=== PATIENT | male | born 1960 | race Caucasian/White ===

== ENCOUNTER 2023-09-17 08:58 | Emergency (ER) | payer MEDICARE, SELFPAY ==
--- NOTE | ~2023-09-17 | XR_ITS ---
EXAMINATION: XR KNEE, LEFT CLINICAL INFORMATION: Left knee pain. COMPARISON: None available. TECHNIQUE: Four views of the left knee. FINDINGS: No acute fracture or dislocation. No significant joint space narrowing. Tiny tricompartmental marginal osteophytes. No osseous erosion. Trace joint effusion. Atherosclerotic calcifications. XR/XR knee LT 3V IMPRESSION: Mild tricompartmental osteoarthritis. Trace joint effusion.
[2023-09-17 09:24] VITALS: BP 134/83; PULSE 89; RESP 18; TEMP 36.4; O2SAT 97; BMI 30.6
--- NOTE | 2023-09-17 12:39 | ED_ITS ---
HPI - Extremity Problem General Chief complaint: Extremity Problem Stated complaint: l knee giving out and painfull Time Seen by Provider: 09/17/23 12:17 Source: patient Mode of arrival: ambulatory Limitations: no limitations History of Present Illness ED Provider: Rishi Jacob PA-C HPI Narrative: 62 y/o male presenting to the ER for evaluation of nontraumatic left knee pain that started yesterday. Patient reports pain inside of the knee with a is worth ambulation and when going down stairs. Patient reports his knee was giving out was walking down the stairs. He lives in a 3rd floor apartment. He does not have any pain with going up the stairs. Denies any injury or fall. He thinks his knee might be slightly swollen on the left side. He denies any redness or warmth. Now being with a cane due to the pain. He has not taken any medications yet for the pain. MD Complaint: joint swelling and joint pain Onset (ago): day(s) Pain Consistency: intermittent Location: left and knee Radiation: none Relieving factors: rest Exacerbating factors: weight bearing, walking and palpation Related Data Previous Rx's ?Medication ?Instructions ?Recorded naproxen 500 mg tablet 500 mg PO BID PRN pain #20 tabs 09/17/23 Allergies Allergy/AdvReac Type Severity Reaction Status Date / Time haloperidol [From Haldol] Allergy Rash Verified 09/17/23 09:26 Review of Systems Review of Systems: Yes all other systems are reviewed and are negative [facility] Social History Social History Advance Directives: No Advance Directives Information Provided: No Do you have a plan to hurt others: No Plan Physical Exam Vital Signs: Vital Signs: Last Vital Signs Temp 97.9 F 09/17/23 13:32 Pulse 80 09/17/23 13:32 Resp 16 09/17/23 13:32 BP 130/73 09/17/23 13:32 Pulse Ox 98 09/17/23 13:32 O2 Del Method Room Air 09/17/23 13:32 BMI result Body Mass Index 30.6 Appearance: Alert. Oriented X3. No acute distress. HEENT: normal inspection CVS: Normal heart rate and rhythm. Pulses normal. Respiratory: No respiratory distress. Skin: Skin warm and dry. Normal skin color. Normal skin turgor. No rashes. Extremities: Normal inspection of the left knee. Mild test along the medial joint line. Normal passive range of motion. No pain with varus or valgus stress. Negative anterior drawer test. Neuro: Oriented X 3. No motor deficit. No sensory deficit. Slightly antalgic gait Medical Decision Making Medical Decision Making [facility] Narrative: 62-year-old male with a history of diabetes and obesity presents to the ER for evaluation of nontraumatic leg pain that started yesterday. He reports it is worse with walking down stairs ambulation. Knee was giving out. Examination patient has some medial joint line tenderness no joint laxity. X-ray today shows some mild osteoarthritis and a trace this injury. Patient was placed in Danny wrap for compression support. We discussed supportive care including rest, ice, compression and elevation. Will start NSAID. Will refer to orthopedics for further evaluation if no improvement with supportive care. Patient agrees with plan. Will for discharge Differential Diagnosis Differential Diagnoses: The differential diagnosis associated with the p resentation includes osteoarthritis, inflammatory arthritis, gout, ligament injury, meniscus injury Independent Interpretation I performed an independent interpretation of an: Plain X-Ray Interpretation: no large joint effusion, no fracture or dislocation Radiology Impression Discussion of test interpretation with radiology: I have reviewed the radiologist's reading. Radiologist Impression: EXAMINATION: XR KNEE, LEFT CLINICAL INFORMATION: Left knee pain. COMPARISON: None available. TECHNIQUE: Four views of the left knee. FINDINGS: No acute fracture or dislocation. No significant joint space narrowing. Tiny tricompartmental marginal osteophytes. No osseous erosion. Trace joint effusion. Atherosclerotic calcifications. XR/XR knee LT 3V IMPRESSION: Mild tricompartmental osteoarthritis. Trace joint effusion. Independent Historian Clinical information obtained from an independent historian. History obtained from or confirmed by: Friend Prescription Management I considered prescription management with: Pain Medication Chronic Conditions Patient?s care impacted by: Diabetes and Other (obesity) Critical Care Time Critical Care Time Critical Care Time: No Discharge Plan Discharge Clinical Impression: Osteoarthritis Qualifiers: Osteoarthritis location: knee Osteoarthritis type: unspecified Laterality: left Qualified Code(s): M17.12 - Unilateral primary osteoarthritis, left knee Patient Disposition: Home, Self-Care Instructions: Osteoarthritis (DC), Knee Pain (ED) Additional Instructions: Your x-ray showed come mild osteoarthritis and a small amount of fluid in the knee. Recommend DANNY wrap for compression and support. Elevate and ice your knee when able. Take the prescribed anti-inflammatory medication as directed - take it with food Take Tylenol 1000 mg of tylenol every 8 hours as needed Follow up with your doctor Follow up with Orthopedics for further evaluation and treatment. If you develop new or worsening symptoms call 911 or come back to the ER for further evaluation. Prescriptions: New naproxen 500 mg tablet 500 mg PO BID PRN (Reason: pain) Qty: 20 0RF Referrals: [facility] [Provider Group] (EXAMINATION: XR KNEE, LEFT CLINICAL INFORMATION: Left knee pain. COMPARISON: None available. TECHNIQUE: Four views of the left knee. FINDINGS: No acute fracture or dislocation. No significant joint space narrowing. Tiny tricompartmental marginal osteophytes. No osseous erosion. Trace joint effusion. Atherosclerotic calcifications. XR/XR knee LT 3V IMPRESSION: Mild tricompartmental osteoarthritis. Trace joint effusion.) Lou Oliveira MD [Primary Care Provider] - Interventions: ED Discharge Assessment Last Done: 09/17/23 13:32 Discharge Date/Time: 09/17/23 13:32 Print Language: Sinhala
[2023-09-17 13:32] VITALS: BP 130/73; PULSE 80; RESP 16; TEMP 36.6; O2SAT 98
== END 2023-09-17 13:32 | disposition home or self-care (01) ==
PROVIDERS: Emergency Provider Emergency Medicine; PCP Internal Medicine
DX: M17.12 Unilateral primary osteoarthritis, left knee (principal); M25.562 Pain in left knee
CPT/HCPCS: 73562; 99282; 99283

== ENCOUNTER 2023-11-06 09:35 | Outpatient (AMB) | payer MEDICARE, SELFPAY ==
--- NOTE | 2023-11-06 09:44 | MHC.OFFVIS ---
Intake Visit Reasons: [employer]IVE [employer]-Left knee pain Intake Note: Hilario is a 62 year old male who presents to the office today for a new patient visit for left knee pain. Pt states the pain started about a month ago when he was walking up the stairs with groceries and twisted his leg. Pt states he was in pain for about 3 days but states that he has minimal discomfort at this time. He denies any locking or giving way. He states that most of his discomfort is along the medial aspect of his knee. Allergies haloperidol [From Haldol] Allergy (Verified 11/06/23 09:44) Rash Medication List - Last Reconciled 11/06/23 by Ned Daugherty MD aspirin 81 mg PO DAILY atorvastatin 40 mg PO DAILY empagliflozin (Jardiance) 10 mg PO DAILY insulin glargine (Lantus Solostar U-100 Insulin) units subcut lisinopril 20 mg PO DAILY metformin ER 1,000 mg PO BID semaglutide (Ozempic) mg subcut Physical Exam Const Other: Well-nourished well-developed very friendly male awake alert and oriented x3 in no acute distress Extrem Other: Bilateral lower extremity examination shows good capillary refill, no skin lesions noted, normal sensation light touch Left knee examination shows a minimal effusion, minimal crepitus with range of motion, tenderness along his medial collateral ligament, no instability Results Reviewed Results Reviewed: X-rays of the patient's left knee show mild diffuse joint space narrowing, no acute bony abnormalities Assessment & Plan Assessment & Plan (1) Left knee pain: Code(s): M25.562 - Pain in left knee Category: Medical Plan Mr. Loy Ferrell presents with intermittent left knee discomfort most likely due to sprain of his collateral ligament. I had a lengthy discussion with the patient regarding the treatment options. At this point the patient's symptoms are tolerable to him. He will continue with his activity modifications. He will follow up with me on an as-needed basis should his symptoms not plateau at an unacceptable level over the next few weeks. Feel free to call me at any time should questions regarding his orthopedic management arise. Thank you very much for asking me to see this very friendly gentleman. I spent 22 minutes in reviewing the patient's records and imaging studies, seeing the patient and documenting in the medical record. Medications: Discontinued naproxen Discontinued Reason: Patient no longer taking 500 mg PO BID PRN 20 tabs 0RF pain Coding Level of Care Code Est Pt Level 3 (27235) Diagnoses Left knee pain M25.562
== END 2023-11-06 10:16 | disposition home or self-care (01) ==
PROVIDERS: PCP Internal Medicine; Visit Provider Orthopaedic Surgery
DX: M25.562 Pain in left knee (principal)
CPT/HCPCS: 99213

== ENCOUNTER → 2023-11-06 09:35 | Outpatient (BNVA) | payer MEDICARE, SELFPAY | PROVIDERS: PCP Internal Medicine; Visit Provider Orthopaedic Surgery | DX: M25.562 Pain in left knee (principal) | CPT/HCPCS: 99212 ==

== ENCOUNTER 2024-07-24 10:06 | Inpatient (IN) | payer OTHER, SELFPAY ==
[2024-07-24] VITALS (12 sets, daily range): BP systolic 111–127; BP diastolic 58–89; PULSE 80–90; RESP 16–20; TEMP 35.8–36.9; O2SAT 95–99; BMI 31.0; BMI 31.4
--- NOTE | 2024-07-24 | ECG_ITS ---
Test Reason : stroke Blood Pressure : */* mmHG Vent. Rate : 86 BPM Atrial Rate : 86 BPM P-R Int : 150 ms QRS Dur : 78 ms QT Int : 376 ms P-R-T Axes : 52 16 31 degrees QTcB Int : 449 ms Sinus rhythm with Fusion complexes Otherwise normal ECG No previous ECGs available Referred By: Lou Oliveira Electronically Signed By: Rich Fritz
--- NOTE | ~2024-07-24 | CT_ITS ---
EXAMINATION: CTA NECK WITH CONTRAST (STROKE) CTA BRAIN WITH CONTRAST (STROKE) CLINICAL INFORMATION: Right-sided weakness. Concerning stroke. COMPARISON: Correlated to noncontrast CT of head dated July 24, 2024. TECHNIQUE: CTA of the head and neck was performed in the axial plane from the mediastinum to the skull vertex using 70 mL Omnipaque 350 intravenous contrast. Additional reformatted multiplanar images including maximum intensity projection MIP images are generated on the CT workstation. This CT examination was performed using dose optimization techniques as appropriate, variously including the following: *Automated exposure control *Adjustment of mA and/or kV according to patient size (this includes techniques or standardized protocols for targeted exams where dose is matched to indication/reason for exam; i.e. extremities or head) *Use of iterative reconstruction technique. DLP: 715 mGy centimeter. FINDINGS: The degree of stenosis determined by criteria similar to NASCET. Limited by patient's motion artifact, particularly at the carotid bulb/bifurcation. Chest CTA: Normal patency and diameter without focal stenosis or intimal flap, aortic arch. Calcified plaques in the inferior aspect of the aortic arch. Neck CTA: Right CCA: Normal patency. No focal stenosis. No intimal flap. Right ICA: Normal patency. Calcified plaque representing less than 50% stenosis. Left CCA: Normal patency. No focal stenosis. No intimal flap. Left ICA: Calcified plaque representing 70% stenosis. No intimal flap. V1/V2 segments: Normal patency. No focal stenosis. No intimal flap. Both demonstrated origin from the subclavian artery. Right vertebral artery is slightly dominant. Brain CTA: Anterior cerebral circulation: ICAs: Calcified plaques in the cavernous supraclinoid segments, bilaterally. Normal patency. No focal stenosis. No abrupt cut off. MCA's: Normal patency. No focal stenosis. No abrupt cut off. No vascular irregularity at the bifurcation/trifurcation. ACAs: Hypoplastic left A1 segment. Normal patency. No focal stenosis. No abrupt cut off. Anterior communicating artery is patent. Ophthalmic arteries are patent without gross irregularity at the origin. Left posterior communicating artery is robust. Posterior cerebral circulation: V3/V4 segments: Normal patency. No focal stenosis. No intimal flap. Posterior inferior cerebral arteries are patent without gross irregularity at the origin. Basilar artery: Normal patency. Small caliber. No intimal flap. Superior cerebellar arteries are patent. Anterior inferior cerebral arteries are patent. 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 No abrupt cut off. No focal stenosis. Ancillary findings: Multilevel cervical spondylosis C3 C6. Edentulous. CT/CT angio head neck STROKE IMPRESSION: No main cerebral artery occlusion or embolus. 70% stenosis left ICA secondary to calcified plaque. Less than 60% stenosis right ICA secondary to calcified plaque. 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 Atherosclerosis disease, cavernous supracavernous segments both ICA. This critical test result is communicated to: Dr. Angel Sahu in the emergency department via [employer] at 11:13 AM on July 24, 2024. Electronically signed by: Kwadwo Reynoso MD 07/24/2024 11:22 AM EDT
--- NOTE | ~2024-07-24 | CT_ITS ---
EXAMINATION: CT HEAD WITHOUT CONTRAST (STROKE PROTOCOL) CLINICAL INFORMATION: Right-sided weakness. Concerning stroke. COMPARISON: None available. TECHNIQUE: Contiguous axial imaging was performed from the skull base to vertex without intravenous administration of contrast. This CT examination was performed using dose optimization techniques as appropriate, variously including the following: *Automated exposure control *Adjustment of mA and/or kV according to patient size (this includes techniques or standardized protocols for targeted exams where dose is matched to indication/reason for exam; i.e. extremities or head) *Use of iterative reconstruction technique DLP: 776 mGy centimeter. FINDINGS: There is increased density at the the M2 or M3 segments of the left MCA, particularly at the left sylvian fissure region. No acute intracranial hemorrhage mass effect, midline shift, hydrocephalus or herniation. No gross effacement of the lainez-white matter differentiation. Prominence of the extra-axial CSF spaces cerebral sulci and ventricles. Posterior cranial fossa contents demonstrated no acute intracranial hemorrhage. Calcified plaques in the cavernous segments both ICA. Edentulous, maxilla. Bony calvarium is intact. No air-fluid levels in the paranasal sinuses. Tympanic cavities and mastoid cells are aerated. CT/CT head for STROKE IMPRESSION: Dense signed left MCA. Concerning acute nonhemorrhagic stroke left MCA territory .. This critical result was discussed with the emergency physician, Dr. Angel Sahu at 10:55 AM hours on July 24, 2024. It was ascertained that the content and urgency of the report was understood at the time of direct communication. Electronically signed by: Kwadwo Reynoso MD 07/24/2024 11:01 AM EDT
--- NOTE | ~2024-07-24 | XR_ITS ---
EXAMINATION: XR CHEST CLINICAL INFORMATION: Stroke Protocol COMPARISON: None available. TECHNIQUE: Frontal view of the chest was obtained. FINDINGS: The cardiac, hilar, and mediastinal contours are normal. The lungs are clear bilaterally. No pneumothorax or effusion. No focal osseous or soft tissue abnormality. XR/XR chest 1V IMPRESSION: No active pulmonary disease. Electronically signed by: Jacobo Morgan MD 07/24/2024 11:42 AM EDT
[2024-07-24 10:46] LABS: MANUAL DIFF FLAG NO
[2024-07-24 10:48] LABS: Prothrombin Time Whole Bld POC 11.7 sec (11.1-13.5)
[2024-07-24 10:51] LABS: Glucose, Whole Blood 394 mg/dL (60-115)
[2024-07-24] MEDS: iohexoL 350 MG/ML 100 ML INFUS..BTL IV (10:57)
[2024-07-24 11:00] LABS: Basophils Absolute Auto 0.1 X10*3/uL (0.0-0.2); Basophils Percent Auto 0.6 % (0-2); Eosinophils Absolute Auto 0.2 X10*3/uL (0.0-0.4); Eosinophils Percent Auto 2.8 % (0-4); Hematocrit 45.1 % (42.0-52.0); Hemoglobin 15.1 g/dl (14.0-18.0); Imm Gran Abs Auto 0.09 X10*3/uL (0.00-0.03); Imm Gran Pct Auto 1.1 % (0.0-0.4); Lymphocytes Absolute Auto 2.6 X10*3/uL (1.2-4.9); Lymphocytes Percent Auto 31.6 % (20-40); Mean Corpuscular HGB Conc 33.5 g/dl (31.0-36.0); Mean Corpuscular Hemoglobin 30.9 pg (27.0-33.0); Mean Corpuscular Volume 92.2 fL (80.0-98.0); Mean Platelet Volume 10.3 fL (9.4-12.4); Monocytes Absolute Auto 0.5 X10*3/uL (0.1-1.2); Monocytes Percent Auto 5.8 % (2-11); Neutrophils Absolute Auto 4.8 x10*3/uL (2.0-8.3); Neutrophils Percent Auto 58.1 % (45-73); Platelet Count 241 X10*3/uL (160-400); Red Blood Count 4.89 X10*6/uL (4.60-5.80); Red Cell Distribution Width 13.4 % (11.0-16.0); White Blood Count 8.2 X10*3/uL (4.8-10.8)
[2024-07-24] MEDS: Lactated Ringers 1,000 ML 999 ML IV (11:02)
[2024-07-24 11:05] LABS: Cholesterol 201 mg/dL (<200); HDL Cholesterol 26 mg/dL (>40)
[2024-07-24 11:10] LABS: Prothrombin Time 11.2 SEC (10.9-12.4); Troponin-I High Sensitivity < 2.7 ng/L (<3.5-35.0)
[2024-07-24 11:12] LABS: Partial Thromboplastin Time 34.7 SEC (26.0-36.8)
[2024-07-24 11:14] LABS: Stroke Lab Use COMPLETE
--- NOTE | 2024-07-24 11:16 | PC.NURSE ---
Patient alert and oriented. Patient himself offers no complaints. Daughter at bedside stating she last saw patient on sun and he seemed tired but otherwise fine. States when she came over this morning the right side of his face seemed droopy . Patient unable to smile, frown, or raise eyebrows on either side. Hand graps and leg lifts strong and equal. Denies sob, chest daryn or dizziness. Provider at bedside to assess patient. Patient sent to CT. Passed swallow eval and is able to follow commands.
[2024-07-24 11:20] LABS: Triglycerides 2050 mg/dL (<150)
--- NOTE | 2024-07-24 11:28 | ED.NEUROSD ---
HPI - Neuro Symptoms/Deficit General Chief Complaint: Stroke Stated Complaint: facial droop Time Seen by Provider: 07/24/24 10:31 Source: patient Mode of arrival: ambulatory Limitations: no limitations History of Present Illness HPI Narrative: This is a 63-year-old man with a past medical history of hypertension, hyperlipidemia, diabetes mellitus who presents for evaluation of right-sided facial droop. Last known well was 2 days prior to presentation. The patient having right-sided facial droop and slurred speech. He states no headache or neck pain. He states no trauma. He states no extremity weakness or paresthesias. He states no vision changes or hearing changes. He states no chest pain or dyspnea. He states that he did not take his aspirin this morning. He states no fevers. He states no previous history of CVA or IN. Related Data Home Medications ?Medication ?Instructions ?Recorded ?Confirmed aspirin 81 mg tablet,delayed 81 mg PO DAILY 11/06/23 11/06/23 release atorvastatin 40 mg tablet 40 mg PO DAILY 11/06/23 11/06/23 empagliflozin 10 mg tablet 10 mg PO DAILY 11/06/23 11/06/23 (Jardiance) insulin glargine 100 unit/mL (3 unit subcut 11/06/23 11/06/23 mL) subcutaneous pen (Lantus Solostar U-100 Insulin) lisinopril 20 mg tablet 20 mg PO DAILY 11/06/23 11/06/23 metformin 500 mg tablet,extended 1,000 mg PO BID 11/06/23 11/06/23 release 24 hr semaglutide 2 mg/dose (8 mg/3 mL) mg subcut 11/06/23 11/06/23 subcutaneous pen injector (Ozempic) Allergies Allergy/AdvReac Type Severity Reaction Status Date / Time haloperidol [From Haldol] Allergy Rash Verified 07/24/24 10:12 Review of Systems Review of Systems: ROS as per HPI [facility] Social History Social History Alcohol intake: former Smoked in Last 30 Days: Yes Use of substances other than those prescribed or required for medical reasons: No Advance Directives: Yes Advance Directives Information Provided: No Advance Directives on File: No Physical Exam Vital Signs: Vital Signs: Last Vital Signs Temp 98 F 07/24/24 11:39 Pulse 87 07/24/24 11:39 Resp 18 07/24/24 11:39 BP 127/80 07/24/24 12:05 Pulse Ox 97 07/24/24 12:05 O2 Del Method Room Air 07/24/24 12:05 BMI result Body Mass Index 31.0 Gen: NAD, AOx3 HEENT: NCAT, EOMI, normal conjunctiva CV: RRR Pulm: CTAB, no increased work of breathing GI: Soft, NTND, no rebound, guarding or rigidity Neuro: GCS 15, no sensory deficits, 5/5 BUE/BLE strength, no dysmetria, NIHSS 3 (1 point for mild-moderate dysrthria, slurring but can be understood, 2 points for partial paralysis (lower face)) Medications Administered Discontinued Medications Generic Name Dose Route Start Last Admin Trade Name Freq PRN Reason Stop Dose Admin Aspirin 324 mg 07/24/24 11:32 07/24/24 11:40 Aspirin 81 Mg Tab.Chew PO 07/24/24 11:33 324 mg ONCE ONE Administration Lactated Ringer's 1,000 mls @ 999 mls/hr 07/24/24 10:56 07/24/24 12:07 Lr IV 07/24/24 11:56 Infused .Q1H1M ONE Infusion Iohexol 100 ml 07/24/24 10:56 07/24/24 10:57 Iohexol 350 Mg/Ml 100 Ml Infus..Btl IV 07/24/24 10:57 70 ml ONCE ONE Administration Medical Decision Making Medical Decision Making MDM Narrative: Differential diagnosis includes, but is not limited toAcute ischemic stroke, acute intracranial hemorrhage, TIA. Not hypoglycemia. Patient is afebrile and hemodynamically stable on room air. Exam is benign and reassuring. NIHSS 3 (as above). Code stroke not activated given presence of symptoms >24 hours. TNK contraindicated given duration of symptoms. I reviewed patient's labs, EKG and CT imaging as below. Patient treated supportively with IV fluids and 5 units IV insulin regular. I discussed patient case and management with customs consultant Neurologist, Dr. Chamorro, who agrees with current management and admission for further evaluation. Patient provided aspirin here in the ED. I discussed case and management with hospitalist, Dr. Frias, who accepts patient for admission. Critical Care Time: A total of 60 minutes spent in direct patient care with coordinating critical resuscitation, procedures, reviewing records, discussing with consultants, reviewing labs, and/or managing patient. Admission/Observation Consideration of admission/observation: Escalation of care including admission/observation considered Consult Healthcare Provider Management of the patient was discussed with: Hospitalist and Weight And Balance Control Agent Lab Data MDM Lab Attestation statement: I reviewed the patient's lab results. Per my interpretation, labs are notable for hyperglycemia with glucose 396, anion gap 21, CO2 17. VBG is obtained. Patient provided 1L IV LR and 5U IV Insulin regular (POC glucose 306 prior to insulin). Anion gap may be multifactorial and secondary to uremia and ketosis. As mentioned, VBG is obtained for evaluation of concomitant acid-base disturbacne. Troponin undetectable. Venous blood gas with very mild acidosis with a pH 7.31, pCO2 46 and HC03 23. 07/24/24 10:41 07/24/24 10:40 Labs: Lab Results 07/24/24 07/24/24 07/24/24 Range/Units 10:40 10:41 10:44 WBC 8.2 (4.8-10.8) X10*3/uL RBC 4.89 (4.60-5.80) X10*6/uL Hgb 15.1 (14.0-18.0) g/dl Hct 45.1 (42.0-52.0) % MCV 92.2 (80.0-98.0) fL MCH 30.9 (27.0-33.0) pg MCHC 33.5 (31.0-36.0) g/dl RDW 13.4 (11.0-16.0) % Plt Count 241 (160-400) X10*3/uL MPV 10.3 (9.4-12.4) fL Immature Gran % (Auto) 1.1 H (0.0-0.4) % Neut % (Auto) 58.1 (45-73) % Lymph % (Auto) 31.6 (20-40) % [place] % (Auto) 5.8 (2-11) % Eos % (Auto) 2.8 (0-4) % Baso % (Auto) 0.6 (0-2) % Lymph # (Auto) 2.6 (1.2-4.9) X10*3/uL [place] # (Auto) 0.5 (0.1-1.2) X10*3/uL Eos # (Auto) 0.2 (0.0-0.4) X10*3/uL Baso # (Auto) 0.1 (0.0-0.2) X10*3/uL Abs Immat Gran (auto) 0.09 H (0.00-0.03) X10*3/uL Absolute Neuts (auto) 4.8 (2.0-8.3) x10*3/uL Absolute Nucleated RBC 0.000 (0.0-0.012) X10*3/uL Nucleated RBC % (auto) 0.0 (0.0-0.2) /100WBC Hold Purple Top SEE NOTE PT 11.2 (10.9-12.4) SEC Whole Blood PT 11.7 (11.1-13.5) sec INR 1.0 (0.9-1.1) Whole Blood INR 1.0 (0.9-1.1) APTT 34.7 (26.0-36.8) SEC VBG pH (7.32-7.43) VBG pCO2 mmHg VBG pO2 mmHg VBG HCO3 (22-26) mmol/L VBG O2 Saturation % VBG Base Excess mmol/L Sodium 138 (135-145) mmol/L Potassium 4.8 (3.3-5.1) mmol/L Chloride 105 (96-108) mmol/L Carbon Dioxide 17 L (22-29) mmol/L Anion Gap 21 H (12-20) BUN 22 H (9-16) mg/dL Creatinine 1.34 (0.5-1.4) mg/dL Estim Creat Clear Calc 64.2 Estimated GFR 54 POC Glucose 394 H* (60-115) mg/dL Random Glucose 396 H* (60-115) mg/dL Calcium 9.4 (8.4-10.2) mg/dL Troponin I High Sens < 2.7 (<3.5-35.0) ng/L Triglycerides 2050 H (<150) mg/dL Cholesterol 201 H (<200) mg/dL LDL Cholesterol, Calc TNP HDL Cholesterol 26 L (>40) mg/dL 07/24/24 07/24/24 Range/Units 12:05 12:09 WBC (4.8-10.8) X10*3/uL RBC (4.60-5.80) X10*6/uL Hgb (14.0-18.0) g/dl Hct (42.0-52.0) % MCV (80.0-98.0) fL MCH (27.0-33.0) pg MCHC (31.0-36.0) g/dl RDW (11.0-16.0) % Plt Count (160-400) X10*3/uL MPV (9.4-12.4) fL Immature Gran % (Auto) (0.0-0.4) % Neut % (Auto) (45-73) % Lymph % (Auto) (20-40) % [place] % (Auto) (2-11) % Eos % (Auto) (0-4) % Baso % (Auto) (0-2) % Lymph # (Auto) (1.2-4.9) X10*3/uL [place] # (Auto) (0.1-1.2) X10*3/uL Eos # (Auto) (0.0-0.4) X10*3/uL Baso # (Auto) (0.0-0.2) X10*3/uL Abs Immat Gran (auto) (0.00-0.03) X10*3/uL Absolute Neuts (auto) (2.0-8.3) x10*3/uL Absolute Nucleated RBC (0.0-0.012) X10*3/uL Nucleated RBC % (auto) (0.0-0.2) /100WBC Hold Purple Top PT (10.9-12.4) SEC Whole Blood PT (11.1-13.5) sec INR (0.9-1.1) Whole Blood INR (0.9-1.1) APTT (26.0-36.8) SEC VBG pH 7.31 L (7.32-7.43) VBG pCO2 46 mmHg VBG pO2 28 mmHg VBG HCO3 23 (22-26) mmol/L VBG O2 Saturation 39.0 % VBG Base Excess -2.7 mmol/L Sodium (135-145) mmol/L Potassium (3.3-5.1) mmol/L Chloride (96-108) mmol/L Carbon Dioxide (22-29) mmol/L Anion Gap (12-20) BUN (9-16) mg/dL Creatinine (0.5-1.4) mg/dL Estim Creat Clear Calc Estimated GFR POC Glucose 306 H (60-115) mg/dL Random Glucose (60-115) mg/dL Calcium (8.4-10.2) mg/dL Troponin I High Sens (<3.5-35.0) ng/L Triglycerides (<150) mg/dL Cholesterol (<200) mg/dL LDL Cholesterol, Calc HDL Cholesterol (>40) mg/dL Independent Interpretation I performed an independent interpretation of an: EKG, Plain X-Ray and CT Scan Interpretation: Per my interpretation EKG shows sinus rhythm at 86 beats per minute, ND 150, QRS 78, QTC 449, no STEMI; the chest x-ray shows no pleural effusion, focal consolidation or pneumothorax. CT of the head demonstrates no acute intracranial hemorrhage. Radiology Impression Discussion of test interpretation with radiology: I discussed test interpretation with the radiologist and I have reviewed the radiologist's reading. Radiologist Impression: I discussed with radiologist, Dr. Reynoso, who states concerning findings for left MCA stroke, no large vessel occlusion or intracerebral hemorrhage. XR/XR chest 1V IMPRESSION: No active pulmonary disease. Electronically signed by: Jacobo Morgan MD 07/24/2024 11:42 AM EDT RP Dictated By: Jacobo Morgan MD Signed By: <Electronically signed by Jacobo Morgan MD in [place]> 07/24/[address]/CT head for STROKE IMPRESSION: Dense signed left MCA. Concerning acute nonhemorrhagic stroke left MCA territory .. This critical result was discussed with the emergency physician, Dr. Angel Sahu at 10:55 AM hours on July 24, 2024. It was ascertained that the content and urgency of the report was understood at the time of direct communication. Electronically signed by: Kwadwo Reynoso MD 07/24/2024 11:01 AM EDT RP Dictated By: Kwadwo Thompson MD Signed By: <Electronically signed by Kwadwo Adams MD in [place]> 07/24/[address]/CT angio head neck STROKE IMPRESSION: No main cerebral artery occlusion or embolus. 70% stenosis left ICA secondary to calcified plaque. Less than 60% stenosis right ICA secondary to calcified plaque. origin left [employer]. Atherosclerosis disease, cavernous supracavernous segments both ICA. This critical test result is communicated to: Dr. Angel Sahu in the emergency department via [facility] at 11:13 AM on July 24, 2024. Electronically signed by: Kwadwo Reynoso MD 07/24/2024 11:22 AM EDT RP Dictated By: Kwadwo Thompson MD Signed By: <Electronically signed by Kwadwo Adams MD in [place]> 07/24/24 1122 Discharge Plan Discharge Clinical Impression: Dysarthria, Facial droop, Acute ischemic left MCA stroke, Hyperglycemia Patient Disposition: Admitted As Inpatient Prescriptions: No Action Jardiance 10 mg tablet 10 mg PO DAILY insulin glargine [Lantus Solostar U-100 Insulin] 100 unit/mL (3 mL) insulin pen subcut lisinopril 20 mg tablet 20 mg PO DAILY atorvastatin 40 mg tablet 40 mg PO DAILY metformin 500 mg tablet extended release 24 hr 1,000 mg PO BID aspirin 81 mg tablet,delayed release (DR/EC) 81 mg PO DAILY Ozempic 2 mg/dose (8 mg/3 mL) pen injector subcut Print Language: Kazakh
[2024-07-24] MEDS: Aspirin 81 MG TAB.CHEW 324 MG PO (11:40)
[2024-07-24 11:43] LABS: Anion Gap 21 (12-20); Blood Urea Nitrogen 22 mg/dL (9-16); Calcium 9.4 mg/dL (8.4-10.2); Carbon Dioxide 17 mmol/L (22-29); Chloride 105 mmol/L (96-108); Creatinine Clr Calc Pharmacy 64.2; Estimated Glomerular Filt Rate 54; Glucose Random 396 mg/dL (60-115); Potassium 4.8 mmol/L (3.3-5.1); Sodium 138 mmol/L (135-145)
--- NOTE | 2024-07-24 12:11 | PC.NURSE ---
blood sugar 306, provider notified, stating to give 5 units not 10 units
[2024-07-24 12:12] LABS: Venous Blood Gas Refer to POC result
[2024-07-24 12:13] LABS: VBG Base Excess -2.7 mmol/L; VBG HCO3 23 mmol/L (22-26); VBG pCO2 46 mmHg; VBG pH 7.31 (7.32-7.43); VBG pO2 28 mmHg
[2024-07-24 12:15] LABS: Glucose, Whole Blood 306 mg/dL (60-115)
[2024-07-24] MEDS: Insulin Regular, Human 100 UNIT/ML 10 ML VIAL IVPUSH (12:16)
--- NOTE | 2024-07-24 12:43 | P.HPHOSP_ITS ---
History of Present Illness Date of Service: 07/24/24 Attending physician on admission: Niurka Frias Chief Complaint: Right-sided facial droop Pt is a 63-year-old male with a PMH significant for?HLD, HTN, poorly controlled insulin-dependent type 2 diabetes who presents to the ED for evaluation right- sided facial droop and difficulty speaking noticed this morning. Pt lives alone but his regularly checked in on by his daughter. Last known well time Sunday afternoon. On Sunday pt went to adult daycare program and earlier this morning was seen by [facility] who administered his medications. Neither mentioned anything about change in appearance or activity. Daughter notes when she saw pt this morning noticed he had a right-sided facial droop and his speech sounded ?garbled?. The pt himself has not noticed any change to his appearance, and denies any acute medical complaints at this time. Reports feels at his baseline. No headache or acute vision changes. No hemiparesis, difficulty walking, or problems grasping or holding onto objects. Denies shortness or breath or difficulty breathing. No chest pain/pressure, palpitations. Denies fever, chills, nausea, vomiting, abdominal pain. Daughter notes that pt has significant psychiatric hx which prevents him from fully taking care of himself. Has a long hx of uncontrolled diabetes as he does not follow a strict diet. Has family hx of cardiac issues on father side, and mother of a stroke. ? In the ED pt's vitals stable and WNL. Labs were significant for creatinine 1.34, initial POC 394, triglycerides 2050, and HLD 26. No leukocytosis. Stable H&H. No significant electrolyte abnormalities. Troponin negative. CXR showed no acute pulmonary disease. CT?of head showed dense signed left MCA concerning for acute nonhemorrhagic stroke of left MCA territory. CTA of head and neck showed 70% stenosis of left ICA in less than 60% stenosis of right ICA secondary to calcified plaque. EKG demonstrated sinus rhythm with possible fusion complexes, but no evidence of significant ST elevations or depressions. Pt was treated with IVF, insulin 5 units IV, and aspirin. Pt will be admitted to the hospital for treatment and further evaluation of right-sided facial droop concerning for acute CVA of left MCA. Review of Systems 2 Review of Systems: Negative except for that which is stated in the HPI. [facility] Social History Alcohol intake: former Smoked in Last 30 Days: Yes Use of substances other than those prescribed or required for medical reasons: No Advance Directives: Yes Advance Directives Information Provided: No Advance Directives on File: No Meds Allergies Allergy/AdvReac Type Severity Reaction Status Date / Time haloperidol [From Haldol] Allergy Rash Verified 07/24/24 10:12 Active Medications: Current Medications Acetaminophen (Acetaminophen 325 Mg Tablet) 650 mg PO Q6H PRN PRN Reason: Pain, Mild 1-3,fever,headache Calcium Carbonate (Calcium Carbonate 750 Mg Tab.Chew) 750 mg PO Q4H PRN PRN Reason: Heartburn Enoxaparin Sodium (Enoxaparin Sodium 40 Mg/0.4 Ml Syringe) 40 mg SUBCUT Q24H [facility] Magnesium Hydroxide (Milk Of Magnesia 30 Ml Oral.Susp) 30 ml PO DAILY PRN PRN Reason: Constipation Melatonin (Melatonin 3 Mg Tablet) 6 mg PO BEDTIME PRN PRN Reason: Insomnia Ondansetron HCl (Ondansetron Hcl 4 Mg/2 Ml Vial) 4 mg IVPUSH Q8H PRN PRN Reason: Nausea and Vomiting Sodium Chloride (0.9 % Sodium Chloride Flush 3 Ml Syringe) 3 ml [facility] Home Medications ?Medication ?Instructions ?Recorded ?Confirmed ?Last Taken ?Type aspirin 81 mg tablet,delayed 81 mg PO DAILY 11/06/23 11/06/23 Unknown History release atorvastatin 40 mg tablet 40 mg PO DAILY 11/06/23 11/06/23 Unknown History lisinopril 20 mg tablet 20 mg PO DAILY 11/06/23 11/06/23 Unknown History metformin 500 mg tablet,extended 1,000 mg PO BID 11/06/23 11/06/23 Unknown History release 24 hr semaglutide 2 mg/dose (8 mg/3 mL) mg subcut 11/06/23 11/06/23 Unknown History subcutaneous pen injector (Ozempic) cholecalciferol (vitamin D3) 50 100 mcg PO DAILY 07/24/24 Unknown History mcg (2,000 unit) capsule (Vitamin D3) diphenhydramine HCl 50 mg capsule 50 mg PO BEDTIME PRN Sleep 07/24/24 Unknown History (Banophen) empagliflozin 25 mg tablet 25 mg PO DAILY 07/24/24 Unknown History (Jardiance) icosapent ethyl 1 gram capsule 2 g PO BID 07/24/24 Unknown History (Vascepa) insulin glargine 100 unit/mL (3 68 unit subcut DAILY 07/24/24 Unknown History mL) subcutaneous pen (Lantus Solostar U-100 Insulin) omeprazole 20 mg capsule,delayed 20 mg PO QAM 07/24/24 Unknown History release tamsulosin 0.4 mg capsule 0.4 mg PO DAILY 07/24/24 Unknown History tirzepatide 10 mg/0.5 mL 10 mg subcut QWEEK 07/24/24 Unknown History subcutaneous pen injector (Mounjaro) Physical Exam 2 Vital Signs and Narrative: Vital Signs: Last Vital Signs Temp 98 F 07/24/24 11:39 Pulse 87 07/24/24 11:39 Resp 18 07/24/24 11:39 BP 127/80 07/24/24 12:05 Pulse Ox 97 07/24/24 12:05 O2 Del Method Room Air 07/24/24 12:05 BMI result Body Mass Index 31.0 Constitutional: Alert, in no acute distress. Mental Status: Oriented to person, place and time. Eyes: Pupils are equal, round, and reactive to light. Ear, Nose, and Throat: Oropharynx clear, mucous membranes moist. Ears and nose without deformities. Trachea midline. Respiratory: Clear to auscultation bilaterally. No wheezing, rales, or rhonchi. Cardiovascular: S1, S2 regular. No murmurs, rubs, or gallops. Gastrointestinal: Abdomen soft, non-tender, non-distended. Normal bowel sounds. Neurologic: Right-sided facial droop and mild dysarthria. Otherwise no other focal deficits noted. Sensation to light touch intact of face and bilateral upper and lower extremities. Strength intact and symmetric of upper and lower extremities bilaterally. Negative pronator drift. Skin: Warm, dry. Extremities: No edema. Psychiatric: Normal mood and affect. Results Labs 07/24/24 10:41 07/24/24 10:40 Labs: Laboratory Results - last 24 hr 07/24/24 07/24/24 07/24/24 10:40 10:41 10:44 MCV 92.2 MCH 30.9 MCHC 33.5 RDW 13.4 Plt Count 241 MPV 10.3 Immature Gran % (Auto) 1.1 H Neut % (Auto) 58.1 Lymph % (Auto) 31.6 Barrow % (Auto) 5.8 Eos % (Auto) 2.8 Baso % (Auto) 0.6 Lymph # (Auto) 2.6 [place] # (Auto) 0.5 Eos # (Auto) 0.2 Baso # (Auto) 0.1 Abs Immat Gran (auto) 0.09 H Absolute Neuts (auto) 4.8 Absolute Nucleated RBC 0.000 Nucleated RBC % (auto) 0.0 Hold Purple Top SEE NOTE PT 11.2 Whole Blood PT 11.7 INR 1.0 Whole Blood INR 1.0 APTT 34.7 VBG pH VBG pCO2 VBG pO2 VBG HCO3 VBG O2 Saturation VBG Base Excess Anion Gap 21 H Estim Creat Clear Calc 64.2 Estimated GFR 54 POC Glucose 394 H* Random Glucose 396 H* Calcium 9.4 Triglycerides 2050 H Cholesterol 201 H LDL Cholesterol, Calc TNP HDL Cholesterol 26 L 07/24/24 07/24/24 12:05 12:09 MCV MCH MCHC RDW Plt Count MPV Immature Gran % (Auto) Neut % (Auto) Lymph % (Auto) Barrow % (Auto) Eos % (Auto) Baso % (Auto) Lymph # (Auto) [place] # (Auto) Eos # (Auto) Baso # (Auto) Abs Immat Gran (auto) Absolute Neuts (auto) Absolute Nucleated RBC Nucleated RBC % (auto) Hold Purple Top PT Whole Blood PT INR Whole Blood INR APTT VBG pH 7.31 L VBG pCO2 46 VBG pO2 28 VBG HCO3 23 VBG O2 Saturation 39.0 VBG Base Excess -2.7 Anion Gap Estim Creat Clear Calc Estimated GFR POC Glucose 306 H Random Glucose Calcium Triglycerides Cholesterol LDL Cholesterol, Calc HDL Cholesterol Imaging Radiologist's Impressions: Impressions Head CT 07/24/24 10:38 IMPRESSION: Dense signed left MCA. Concerning acute nonhemorrhagic stroke left MCA territory .. This critical result was discussed with the emergency physician, Dr. Angel Sahu at 10:55 AM hours on July 24, 2024. It was ascertained that the content and urgency of the report was understood at the time of direct communication. Electronically signed by: Kwadwo Reynoso MD 07/24/2024 11:01 AM EDT RP Head/Neck CTA 07/24/24 10:38 IMPRESSION: No main cerebral artery occlusion or embolus. 70% stenosis left ICA secondary to calcified plaque. Less than 60% stenosis right ICA secondary to calcified plaque. 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 Atherosclerosis disease, cavernous supracavernous segments both ICA. This critical test result is communicated to: Dr. Angel Sahu in the emergency department via [facility] connect at 11:13 AM on July 24, 2024. Electronically signed by: Kwadwo Reynoso MD 07/24/2024 11:22 AM EDT RP Chest X-Ray 07/24/24 10:39 IMPRESSION: No active pulmonary disease. Electronically signed by: Jacobo Morgan MD 07/24/2024 11:42 AM EDT RP Assessment and Plan (1) Acute ischemic left MCA stroke: Status: Acute Plan Pt is a 63-year-old male with a PMH significant for?HLD, HTN, poorly controlled insulin-dependent type 2 diabetes who presents to the ED for evaluation right- sided facial droop and difficulty speaking noticed this morning. Pt will be admitted to the hospital for treatment and further evaluation of right-sided facial droop concerning for acute CVA of left MCA. Acute CVA of left MCA Pt with right-sided facial droop, CTA of head showing dense signed left MCA Last known well time Sunday Pt with uncontrolled diabetes, hyperlipidemia, carotid stenosis and atherosclerotic disease Continue aspirin 81 mg daily Increase atorvastatin 40 mg daily to 80 mg daily Neurology consult Hold on MRI pending Neurology consult as CTA of head showing likely acute CVA PT/OT evaluation Monitor on telemetry Hypertriglyceridemia Triglycerides 2250 Atorvastatin 80 mg daily as above Will start on fenofibrate 54 mg daily Carotid stenosis CTA of head and neck showed 70% stenosis of left ICA and less than 60% stenosis of right ICA secondary to calcified plaques Treat hyperlipidemia as above Vascular surgery consult to establish care Insulin-dependent type 2 diabetes with hyperglycemia Patient's POC 394 at time of presentation Has been poorly controlled for many years Place on sliding scale insulin Hold metformin Continue Jardiance Will check A1c Diabetic diet Question of cognitive impairment Daughter notes pt with ?memory issues? for the past few years OT evaluation with MoCA HTN BP well-controlled Hold lisinopril for now, continue tomorrow GERD Continue PPI BPH Continue tamsulosin Full Code Attending:?Dr. Frias DVT Prophylaxis: Lovenox Pt will require a hospitalization of at least two nights for treatment of?acute CVA of left MCA requiring close cardiac and neurological monitoring, as well as specialist consultation with Neurology and OT/PT. Quality Stroke Does the patient have a stroke diagnosis?: Yes Reason for No Anti-thrombotic by Day Two: N/A - Med Ordered (Aspirin given. No tNK as pt's last known well time 2 days prior, well outside of therapeutic window.) VTE Prior VTE?: No VTE Risk Level:: Medical - moderate - high VTE Device Contraindication: Treatment Not Indicated VTE Drug Contraindication: N/A - Med Ordered
--- OUTSIDE RECORDS SUMMARY | 2024-07-24 13:43 | XMS_ITS | Data Portability ---
Author Organization [employer] [place] [facility] [employer] Address [address] [place] [id number] Care Team Providers Care Side Door Worker Name Role Phone [facility] Referring Provider Assessment Encounter Date Assessment Date Assessment LastModified by Organization Details LastModified Time 02/23/2023 02/23/2023 I provided real -time medical direction via phone for this encounter, and was available for additional phone based assistance as needed. I have reviewed and agree with the Assessment and Plan as documented by the Regional Extension Service Specialist. Patient given the opportunity to ask questions. as per above, patient was seen on February 20 and sent to the emergency room for paronychia AA. It was drained and he was placed on antibiotics. We were asked to come back to check on him and he is tolerating antibiotics well. The wound overall is improved. Please see pictures above. There is no evidence of spreading cellulitis. And again he is tolerating antibiotics well. Recommended that he call for a repeat visit and follow-up should conditions change from today. And red flags were discussed. We discussed the diagnostic uncertainty of home visits and the risk associated with this. In this case, the patient and I felt this to be an acceptable and reasonable amount of risk given the benefit of avoiding an ED visit. We discussed the need to seek care urgently/emerge ntly in the setting of any new or worsening serious symptoms, particularly fever chills Evidence of redness that is extending beyond what is currently present [email or web address] Not available 02/23/2023 16:57:30 Plan of Treatment Reminders Order Date Submit Date Provider Last Modified By Organization Details Last Modified Time Details Appointments None record ed. Lab None record ed. Referral None record ed. Procedures None record ed. Surgeries None record ed. Imaging None record ed. Medication Orders None record ed. Patient TargetsNo targets recorded. Patient InstructionsNo instructions recorded. Reason for Referral None Reported. Medical Equipment None Reported. Allergies Allergen ID Allergen Name Allergen Category Reaction Reaction Severity Criticality Documentation Date Start Date Code Code System Note Provider Name and Address Organization Details Recorded Time 8688 Haldol medicatio n Not available Not available Not available 02/12/2024 27109 9 RxNorm Not Available [facility] - production 4 03:46:03 Medications Name Sig Start Date Stop Date Status Note LastModified by Organization Details LastModified Time atorvastatin 40 mg tablet active Not Available Not Available Not Available atorvastatin 80 mg tablet TAKE 1 TABLET BY MOUTH ONCE DAILY active Not Available Not Available No t Available lisinopril 20 mg tablet TAKE 1 TABLET BY MOUTH ONCE DAILY active Not Available Not Available No t Available Alcohol Pads USE WITH insulin AND checking blood sugar EVERY DAY active Not Available Not Available No t Available aspirin 81 mg tablet,delay ed release TAKE 1 TABLET BY MOUTH ONCE DAILY active Not Available Not Available No t Available tamsulosin 0.4 mg capsule TAKE 1 CAPSULE BY MOUTH ONCE DAILY active Not Available Not Available No t Available omeprazole 20 mg capsule,chaz yed release TAKE 1 CAPSULE BY MOUTH ONCE DAILY 30 MINUTES BEFORE BREAKFAST active Not Available Not Available No t Available ibuprofen 600 mg tablet TAKE 1 TABLET BY MOUTH EVERY 8 HOURS NEEDED take with food active Not Available Not Available No t Available albuterol sulfate HFA 90 mcg/actuatio n aerosol inhaler INHALE 2 PUFFS BY MOUTH INTO THE lungs EVERY 4 HOURS NEEDED FOR COUGH, FOR SHORTNESS OF BREATH, OR FOR WHEEZING active Not Available Not Available No t Available metformin ER 500 mg tablet,exten ded release 24 hr TAKE 4 TABLETS BY MOUTH ONCE DAILY WITH A MEAL active Not Available Not Available No t Available Unistik 3 Comfort Device kit USE two (2) times a day DIRECTED AND NEEDED active Not Available Not Available No t Available FreeStyle Lite Strips USE TO TEST FINGER STICK BLOOD SUGAR two (2) times a day AND NEEDED active Not Available Not Available No t Available Lantus Solostar U-100 Insulin 100 unit/mL (3 mL) subcutaneous pen INJECT 52 UNITS UNDER THE SKIN ONCE DAILY active Not Available Not Available N ot Available omega 4-zca-eev-fi sh oil 300 mg-1,000 mg capsule TAKE TWO CAPSULES BY MOUTH ONCE DAILY active Not Available Not Available No t Available D3-2000 50 mcg (2,000 unit) capsule TAKE TWO CAPSULES BY MOUTH ONCE DAILY active Not Available Not Available No t Available Comfort EZ Pen [place] 31 gauge x 5/16 USE ONCE DAILY WITH insulin active Not Available Not Available No t Available Banophen 50 mg capsule TAKE 1 CAPSULE BY MOUTH AT BEDTIME NEEDED active Not Available Not Available No t Available Inject Ease Lancets 28 gauge USE TO TEST FINGER STICK BLOOD SUGAR ONCE DAILY active Not Available Not Available No t Available Jardiance 10 mg tablet TAKE 1 TABLET BY MOUTH ONCE DAILY active Not Available Not Available No t Available Ozempic 1 mg/dose (4 mg/3 mL) subcutaneous pen injector active Not Available Not Available Not Available Ozempic 2 mg/dose (8 mg/3 mL) subcutaneous pen injector INJECT 2 MG SUBCUTANEOU SLY EACH WEEK active Not Available Not Available No t Available Vitals Date Recorded Oxygen saturation Oxygen saturation in Arterial blood by Pulse oximetry Respiratory rate Body weight Body temperature Body height Heart rate Systolic blood pressure Diastolic blood pressure Provider Name and Address Organization Details Last Updated DateTime 3 99 % 99 % 14 /min 99830.6 g 98.1 [degF] 167.64 cm 94 /min 128 mm[Hg] 72 mm[Hg] Not Available [facility] 14:37:26 Date Recorded Heart rate Body weight Respiratory rate Body temperature Oxygen saturation Oxygen saturation in Arterial blood by Pulse oximetry Body height Systolic blood pressure Diastolic blood pressure Provider Name and Address Organization Details Last Updated DateTime 3 80 /min 50771.4 g 14 /min 98.4 [degF] 98 % 98 % 170.18 cm 166 mm[Hg] 82 mm[Hg] Not Available [facility] 16:49:05 Social History None recorded. Functional Status None recorded. Mental Status None recorded. Family History Nothing Reported. Medical History No medical history recorded. Past Encounters Encounter ID Performer Location Encounter Start Date Encounter Closed Date Diagnosis/Indication Diagnosis SNOMED-CT Code Diagnosis ICD10 Code Diagnosis Note [id number] Ghanshyam Glover MD [facility] - [facility] [address] [place] [address] 02/20/2023 14:37:17 02/20/2023 22:31:19 Paronychia of toe [id number] L03.039 This 62-year-ol d male noticed some swelling of this right first toe for the past few days. He has type 2 diabetes. I reviewed images of the toe and he clearly has a paronychia of the right first toe. I recommende d that he go to the ER for further evaluation and treatment. The patient agreed with this plan. [id number] Kayce Paniagua MD Main - [address] [address] 02/23/2023 16:48:57 02/26/2023 13:19:33 Paronychia of toe [id number] L03.039 Health Concerns Section Related Observation LastModified by Organization Detai ls LastModified Time None Recorded Concern Status LastModified by Organization Details LastModified Time None Recorded Advance Directives Directive None Recorded Payers Encounter Date Sequence Insurance Name Policy Number Policy North Covered Member ID North Member ID Guarantor Name 02/20/2023 1 [facility] - DOS ON OR AFTER 2022 - DUAL ELIGIBLE - [facility] OPTIONS AND ONE CARE (MEDICARE REPLACEMENT/ADV ANTAGE - HMO) Hilario Granado [id number] Mahendra Loy 02/23/2023 1 [facility] - DOS ON OR AFTER 2022 - DUAL ELIGIBLE - [facility] OPTIONS AND ONE CARE (MEDICARE REPLACEMENT/ADV ANTAGE - HMO) Hilario Granado [id number] Mahendra Loy Notes Date Note Type Note Provider Name and Address Organization Details Recorded Time 02/20/2023 text/html HPI: 62 y/o male patients daughter, Maday, called PCP office with reports of patient great toe on right foot purple, swollen and warm to touch. She denies any other swelling in BLE other than in patients toe. Patient denies injury to area. Daughter states that the color has become darker and grown in size since the weekend. Patient has poorly controlled DM. .................. .................. .................. .................. .................. .................. .................. ............... CRC Nursing Assessment: Comments: Reviewed. No further information needed to process visit. Diane Glover MD [address] [facility],[address], [place], [address], [facility] 02/20/2023 14:43:01 02/23/2023 text/html HPI: 62 yo male seen by Jeronimo 02/20 for few days of increasing redness and pain of great toe, felt to be paronychia. Given that he is diabetic, he was sent to the ED for further evaluation. X-ray of foot was negative for acute process, including osteomyelitis, but x-ray of tibia was obtained as lesion was noted in distal aspect. Impression: Fairly benign-appearing lucent and sclerotic lesion in the distal right tibia likely an enchondroma. Metastasis is less likely unless the patient has a history of a primary malignancy. WBC and CRP WNL, ESR slightly elevated at 32. He was prescribed Keflex 500mg BID x7 days and Bactrim DS 800-160mg BID x7 days. Per instructions: Please soak the toe 3-4 times a day in warm water, Take OTC Tylenol 650 mg every 6-8 hours as needed for pain, take with food, Take the antibiotics, Bactrim and Keflex twice daily as prescribed for 1 week, take the entire prescriptions, Please follow-up with your primary care provider in 2 days for reevaluation. .................. .................. .................. .................. .................. .................. .................. ............... CRC Nursing Assessment: Comments: Reviewed. No further information needed to process visit. Diane South RN .................. .................. .................. .................. .................. .................. .................. ............... Regional Extension Service Specialist Note From Crow Howell: Patient HARDY times three complains of left great toe infection. This mechanical design drafter saw the patient two days ago. Patient was transported to the hospital where he received a prescription for Bactrim and Keflex and is taking same. He said his toe was x-rayed, and he was discharged. Patient requests check up. Patient denies pain or discomfort to left toe. Patient pink, warm and dry secondary exam unremarkable left great toe almost exactly the same as 48 hours ago area above toe nail red and swollen. C encouraged pt to continue antibiotic? s and watch for fever or other symptoms. Red flags and pt education discussed. Regional Extension Service Specialist Allergies: Haldol .................. .................. .................. .................. .................. .................. .................. ............... Disposition: Abad Paniagua MD [address] [facility],[address], [place], [address], [employer] 02/23/2023 16:57:46
[2024-07-24 13:57] LABS: Estimated Average Glucose 203 mg/dL; Hemoglobin A1C 293.2242 umol/L; Hemoglobin A1c % 8.7 % (<6.0); Total Hemoglobin (HGBA1C) 4084.8675 umol/L
[2024-07-24] MEDS: Enoxaparin Sodium 40 MG/0.4 ML SYRINGE SUBCUT (14:16)
[2024-07-24] MEDS: Fenofibrate 54 MG TABLET PO (14:17)
[2024-07-24 14:25] LABS: Glucose, Whole Blood 217 mg/dL (60-115)
--- NOTE | 2024-07-24 14:59 | PC.NURSE ---
Alert and oriented, calm and cooperative. Vascular PA at bedside to speak with patient. Neuros iintact, denies pain or discomfort
--- NOTE | 2024-07-24 15:18 | P.CONGS_ITS ---
<Statement entered by Jaime Camejo MD - 07/24/24 17:05> I have seen and evaluated the patient and agree with history, findings, assessment and plan documented by Maude Ogden PA-c. Patient with carotid stenosis and stroke. Would continue medical management and add echo for evaluation. Patient can follow up with us as outpatient for further assessment and plan History of Present Illness Consult details Consult date: 07/24/24 <Maude Ogden PA-C - Last Filed: 07/24/24 15:29> Narrative: We were consulted for Hilario, for concerns of carotid artery stenosis, found on imaging. Hilario presented to the ER this morning with a right sided facial droop and slurred speech. Last known well time was 2d prior. He has a medical hx pertinent for HTN, HLD, and diabetes. He does take a daily ASA and is on Atorvastatin 40mg daily. He states he has been taking his medications regularly. He denies any headaches, weakness, or lightheadedness. He denies any diff swallowing. He states he is feeling better than when he first came in. <Maude Ogden PA-C - Last Filed: 07/24/24 15:29> Review of Systems 2 Constitutional: Constitutional: Reports as per HPI and Denies weakness < STUART Liriano Last Filed: 07/24/24 15:29> ENT: Reports Normal hearing present and Denies dizziness <STUART Liriano Last Filed: 07/24/24 15:29> Cardiovascular: Cardiovascular: Reports as per HPI, Denies chest pain, Denies chest pain at rest, Denies chest pain with activity, Denies dyspnea and Denies dyspnea on exertion <STUART Liriano Last Filed: 07/24/24 15:29> Respiratory: Respiratory: Reports as per HPI, Denies cough, Denies dyspnea and Denies dyspnea on exertion <STUART Liriano Last Filed: 07/24/24 15:29> Gastrointestinal: Gastrointestinal: Reports as per HPI, Denies abdominal pain, Denies nausea and Denies vomiting <STUART Liriano Last Filed: 07/24/24 15:29> Musculoskeletal: Musculoskeletal: Denies numbness <STUART Liriano Last Filed: 07/24/24 15:29> Integumentary/Breasts: Skin/Breast: Reports as per HPI, Denies erythema and Denies wounds <Maude Ogden PA-C Last Filed: 07/24/24 15:29> Neurologic: Reports Normal hearing present, Reports Abnormal speech present, Denies dizziness, Denies numbness, Denies Sensory deficit (Neuro) and Denies weakness <Maude Ogden PA-C Last Filed: 07/24/24 15:29> Psychiatric: Psychiatric: Reports no additional psychiatric complaints < STUART Liriano Last Filed: 07/24/24 15:29> Endocrine: Endocrine: Reports no additional endocrine complaints <STUART Liriano Last Filed: 07/24/24 15:29> [facility] Social History Social History: Social History Alcohol intake: former Smoked in Last 30 Days: Yes Use of substances other than those prescribed or required for medical reasons: No Advance Directives: Yes Advance Directives Information Provided: No Advance Directives on File: No <Maude Ogden PA-C Last Filed: 07/24/24 15:29> Meds Allergies/Adverse reactions: Allergies Allergy/AdvReac Type Severity Reaction Status Date / Time haloperidol [From Haldol] Allergy Rash Verified 07/24/24 10:12 <STUART Liriano Last Filed: 07/24/24 15:29> Active Medications: Current Medications Acetaminophen (Acetaminophen 325 Mg Tablet) 650 mg PO Q6H PRN PRN Reason: Pain, Mild 1-3,fever,headache Aspirin (Aspirin 81 Mg Tab.Chew) 81 mg PO DAILY JACKELIN Calcium Carbonate (Calcium Carbonate 750 Mg Tab.Chew) 750 mg PO Q4H PRN PRN Reason: Heartburn Dextrose (Dextrose 50 % 25 Gm/50 Ml Syringe) 25 gm IVPUSH Q15M PRN; Protocol PRN Reason: per Hypoglycemia Standing Ord. Enoxaparin Sodium (Enoxaparin Sodium 40 Mg/0.4 Ml Syringe) 40 mg SUBCUT Q24H [facility] Last Admin: 07/24/24 14:16 Dose: 40 mg Fenofibrate (Fenofibrate 54 Mg Tablet) 54 mg PO DAILY [facility] Last Admin: 07/24/24 14:17 Dose: 54 mg Glucose (Glucose Gel 15 Gm Gel..Gram.) 15 gm PO Q15M PRN; Protocol PRN Reason: per Hypoglycemia Standing Ord. Insulin Human Lispro (Insulin Lispro 100 Unit/Ml 3 Ml Vial) 0 unit SUBCUT QIDACHS [facility]; Protocol Magnesium Hydroxide (Milk Of Magnesia 30 Ml Oral.Susp) 30 ml PO DAILY PRN PRN Reason: Constipation Melatonin (Melatonin 3 Mg Tablet) 6 mg PO BEDTIME PRN PRN Reason: Insomnia Ondansetron HCl (Ondansetron Hcl 4 Mg/2 Ml Vial) 4 mg IVPUSH Q8H PRN PRN Reason: Nausea and Vomiting Sodium Chloride (0.9 % Sodium Chloride Flush 3 Ml Syringe) 3 ml IVFLUSH QSHIFT [facility] <Maude Ogden PA-C - Last Filed: 07/24/24 15:29> Home medications: Home Medications ?Medication ?Instructions ?Recorded ?Confirmed ?Last Taken ?Type aspirin 81 mg tablet,delayed 81 mg PO DAILY 11/06/23 07/24/24 07/24/24 History release atorvastatin 40 mg tablet 40 mg PO DAILY 11/06/23 07/24/24 07/24/24 History lisinopril 20 mg tablet 20 mg PO DAILY 11/06/23 07/24/24 07/24/24 History metformin 500 mg tablet,extended 1,000 mg PO BID 11/06/23 07/24/24 07/24/24 History release 24 hr aripiprazole 30 mg tablet 30 mg PO DAILY 07/24/24 07/24/24 07/24/24 History bupropion HCl 200 mg tablet,12 hr 200 mg PO DAILY 07/24/24 07/24/24 07/24/24 History sustained-release cholecalciferol (vitamin D3) 50 100 mcg PO DAILY 07/24/24 07/24/24 07/24/24 History mcg (2,000 unit) capsule (Vitamin D3) clonazepam 0.5 mg tablet 0.25 mg PO BID PRN Anxiety 07/24/24 07/24/24 Unknown History diphenhydramine HCl 50 mg capsule 50 mg PO BEDTIME PRN Sleep 07/24/24 07/24/24 Unknown History (Banophen) empagliflozin 25 mg tablet 25 mg PO DAILY 07/24/24 07/24/24 07/24/24 History (Jardiance) icosapent ethyl 1 gram capsule 2 g PO BID 07/24/24 07/24/24 07/24/24 History (Vascepa) insulin glargine 100 unit/mL (3 68 unit subcut DAILY 07/24/24 07/24/24 07/24/24 History mL) subcutaneous pen (Lantus Solostar U-100 Insulin) melatonin 3 mg tablet 6 mg PO BEDTIME PRN Insomnia 07/24/24 07/24/24 Unknown History omeprazole 20 mg capsule,delayed 20 mg PO DAILY@0630 07/24/24 07/24/24 07/24/24 History release tamsulosin 0.4 mg capsule 0.4 mg PO DAILY 07/24/24 07/24/24 07/24/24 History tirzepatide 10 mg/0.5 mL 10 mg subcut TH 07/24/24 07/24/24 07/17/24 History subcutaneous pen injector (Mounjaro) <Maude Ogden PA-C - Last Filed: 07/24/24 15:29> Physical Exam 2 Vital Signs: Vital Signs: Last Vital Signs Temp 98.5 F 07/24/24 14:00 Pulse 80 07/24/24 14:00 Resp 18 07/24/24 14:00 BP 120/72 07/24/24 14:00 Pulse Ox 96 07/24/24 14:00 O2 Del Method Room Air 07/24/24 14:00 BMI result Body Mass Index 31.0 <STUART Liriano Last Filed: 07/24/24 15:29> Const: General: comfortable and no acute distress <STUART Liriano Last Filed: 07/24/24 15:29> Orientation/consciousness: patient oriented x3 <STUART Liriano Last Filed: 07/24/24 15:29> HEENT: Ears: hearing grossly normal bilaterally <STUART Liriano Last Filed: 07/24/24 15:29> Resp: Effort & Inspection: normal respiratory effort and able to speak in complete sentences <STUART Liriano Last Filed: 07/24/24 15:29> Auscultation: clear to auscultation bilaterally <Maude OgdenBERNIE - Last Filed: 07/24/24 15:29> Cardio: Rate: regular rate <Maude OgdenBERNIEDago - Last Filed: 07/24/24 15:29> Rhythm: regular rhythm <Maude OgdenJOKallie - Last Filed: 07/24/24 15:29> Heart sounds: S1 normal heart sound present and S2 normal heart sound present <Maude OgdenJOKallie - Last Filed: 07/24/24 15:29> Bruits: no abdominal aortic bruits, no carotid bruits, no femoral bruits and no renal bruits <Maude OgdenBERNIE - Last Filed: 07/24/24 15:29> GI: Palpation (GI): No Abdominal aortic bruit present <Maude OgdenJOKallie - Last Filed: 07/24/24 15:29> Neuro: Other: Slight right sided facial droop noted. Slight decrease in winemaker strength and shoulder shrugging on the right. Slightly slurred speech noted. Oriented x3. <Maude OgdenBERNIE - Last Filed: 07/24/24 15:29> General: patient oriented x3 <Maude SouzaBERNIE ruiz Last Filed: 07/24/24 15:29> Cranial nerves: Yes Normal hearing present <Maude SouzaBERNIE ruiz - Last Filed: 07/24/24 15:29> Speech: Abnormal speech present <Maude Jeong BERNIE Ogden - Last Filed: 07/24/24 15:29> Sensory Exam: No Sensory deficit (Neuro) <Maude SouzaBERNIE ruiz - Last Filed: 07/24/24 15:29> Results Labs Result diagrams: 07/24/24 10:41 07/24/24 10:40 <Maude SouzaBERNIE ruiz - Last Filed: 07/24/24 15:29> Labs: Abnormal lab results 07/24/24 07/24/24 07/24/24 Range/Units 10:40 10:41 10:44 Immature Gran % (Auto) 1.1 H (0.0-0.4) % Abs Immat Gran (auto) 0.09 H (0.00-0.03) X10*3/uL VBG pH (7.32-7.43) Carbon Dioxide 17 L (22-29) mmol/L Anion Gap 21 H (12-20) BUN 22 H (9-16) mg/dL POC Glucose 394 H* (60-115) mg/dL Random Glucose 396 H* (60-115) mg/dL Hemoglobin A1c % 8.7 H (<6.0) % Triglycerides 2050 H (<150) mg/dL Cholesterol 201 H (<200) mg/dL HDL Cholesterol 26 L (>40) mg/dL 07/24/24 07/24/24 07/24/24 Range/Units 12:05 12:09 14:20 Immature Gran % (Auto) (0.0-0.4) % Abs Immat Gran (auto) (0.00-0.03) X10*3/uL VBG pH 7.31 L (7.32-7.43) Carbon Dioxide (22-29) mmol/L Anion Gap (12-20) BUN (9-16) mg/dL POC Glucose 306 H 217 H (60-115) mg/dL Random Glucose (60-115) mg/dL Hemoglobin A1c % (<6.0) % Triglycerides (<150) mg/dL Cholesterol (<200) mg/dL HDL Cholesterol (>40) mg/dL Short CBC 07/24/24 Range/Units 10:41 WBC 8.2 (4.8-10.8) X10*3/uL Hgb 15.1 (14.0-18.0) g/dl Hct 45.1 (42.0-52.0) % Plt Count 241 (160-400) X10*3/uL BMP 07/24/24 10:40 Sodium 138 Potassium 4.8 Chloride 105 Carbon Dioxide 17 L BUN 22 H Creatinine 1.34 Calcium 9.4 All other labs normal. <Maude Ogden PA-C - Last Filed: 07/24/24 15:29> Assessment and Plan (1) Acute ischemic left MCA stroke: Status: Acute <Maude Ogden PA-C - Last Filed: 07/24/24 15:29> We were consulted on Hilario for concerns of findings on CTA for bilateral carotid stenosis. He presented to the ER today with a right sided facial droop and slurred speech with a last known well time of 2d ago. He was found on CT angio of the head/neck of 70% stenosis of the LICA and <60% of the SAMI. He was found to have a nonhemorrhagic CVA of the left MCA. We recommend continuing with the daily ASA, increasing the Atorvastatin to high dose, and following up with us outpatient. We did place orders for an Echo. We will continue to monitor. Thank you for the consult. If there are any questions or concerns, please do not hesitate to reach out to us. <Maude Ogden PA-C - Last Filed: 07/24/24 15:29> Procedures Date of Service Date of Service: 07/24/24 <Maude Ogden PA-C - Last Filed: 07/24/24 15:29> 07/24/24 <Jaime Camejo MD - Last Filed: 07/24/24 17:04>
--- NOTE | 2024-07-24 15:30 | PHA.MEDREC ---
Addendum entered by Musa Webb RPh 07/24/24 18:11: Spoke to patient and verified that he takes 4 tablets of metformin ER 500 mg once a day. Med rec was reviewed by [facility]. Original Note: Pharmacy Consult ? Medication Reconciliation Pharmacy has completed the medication reconciliation. Spoke to patient and Daughter at bedside to confirm med list. Daughter states [facility] Patient confirmed Lantus Solostar 68 units daily, Mounjaro 10 mg every , last dose was 07/17/24. Util[facility] and list [facility] to confirm med list.
[2024-07-24] MEDS: 0.9 % Sodium Chloride Flush 3 ML SYRINGE IVFLUSH ×2 (17:23→20:50)
[2024-07-24 17:32] LABS: Glucose, Whole Blood 166 mg/dL (60-115)
[2024-07-24 18:09] LABS: Glucose, Whole Blood 198 mg/dL (60-115)
[2024-07-24] MEDS: Insulin Lispro 100 UNIT/ML 3 ML VIAL SUBCUT ×2 (18:14→20:47)
[2024-07-24 20:44] LABS: Glucose, Whole Blood 236 mg/dL (60-115)
[2024-07-25] VITALS (7 sets, daily range): BP systolic 102–142; BP diastolic 57–86; PULSE 83–93; RESP 16–18; TEMP 36.2–37.1; O2SAT 95–98
[2024-07-25] MEDS: Omeprazole 20 MG CAPSULE.DR PO (04:45)
--- NOTE | 2024-07-25 07:00 | CA_ITS ---
Transthoracic Echocardiogram Patient (Last, First, Middle): Hilario Juan, Gender: Male Date of : 1960 Age: 63 Procedure Date: 07/25/2024 Procedure Type: Transthoracic Echocardiogram Location: [facility] [place] Height: 175.26 cm Weight: 94.8 kg BSA: 2.10 m2 Heart Rate: 86 bpm BP: 120 / 72 mmHg Scout: SB Referring MD: Maude Ogden PA-C Symptoms: bilateral carotid stenosis, pre op, cva Study Quality: Fair/no IV access ECG Rhythm: Sinus Conclusions: - Normal left ventricular size, thickness, systolic function, and wall motion. The visually estimated ejection fraction is between 60-65%. - Normal right ventricular cavity size and systolic function. - Interatrial shunt cannot be excluded by color Doppler. Findings Left Ventricle Normal left ventricular size, thickness, systolic function, and wall motion. The visually estimated ejection fraction is between 60-65%. There is no evidence of regional wall motion abnormalities. Diastolic function is normal for age. There is moderate septal asymmetric hypertrophy. Right Ventricle Normal right ventricular cavity size and systolic function. Atria The left atrium is normal in size. Interatrial shunt cannot be excluded by color Doppler. The right atrium is normal in size. Aortic Valve Normal aortic valve structure and function. There is no aortic valve stenosis. There is no aortic valve regurgitation. Mitral Valve The mitral valve appears normal. There is no mitral valve regurgitation. There is no mitral valve stenosis. Pulmonic Valve The pulmonic valve is likely normal. Tricuspid Valve Normal tricuspid valve structure. There is trace tricuspid valve regurgitation. Tricuspid regurgitation envelope is inadequate for calculation of right ventricular systolic pressure. Normal right atrial pressure. Great Vessels All visible segments of the aorta are normal in size. The visualized portions of the pulmonary artery and branches are normal. Venous The inferior vena cava is normal in size and collapses greater than 50% with inspiration. Pericardium/Pleural There is no evidence of pericardial effusion. Prior Study Comparison No prior study available for comparison. Measurements 2D Linear Measurements IVSd: 0.88 0.6-0.9/0.6-1.0 cm LVIDd: 3.44 3.9-5.3/4.2-5.9 cm LVIDd Index: 1.64 2.4-3.2/2.2-3.1 cm/m2 LA Diam: 3.40 2.7-3.8/3.0-4.0 cm LAIDs Index: 1.62 1.5-2.3 cm/m2 LVOT Diam: 2.20 3.0+(-)1.3 cm 2D Systolic Function EF 4C: 60.80 >55% EF 2C: 54.90 >55% EF BiP: 57.80 >55% Mitral Valve MV Pk E: 0.75 MV PK A: 0.90 MV Decel Time: 165.00 E/A: 0.80 E'Lateral: 7.07 E'Medial: 8.16 E/E' Med: 9.20 E/E' Lat: 10.60 PHT: 48.00 MVA PHT: 4.58 Decel [place]: 4.53 Aortic Valve AoV Pk Daniel: 1.25 AoV Pk Grad: 6.00 LUH: 3.12 LVOT LVOT Pk Daniel: 1.09 LVOT Mn Daniel: 0.74 LVOT VTI: 0.19 LVOT Pk Grad: 5.00 LVOT Mn Grad: 2.00 LVOT Diam: 2.20 LVOT Area: 3.80 Diastolic Function MV Pk E: 0.75 MV Pk A: 0.90 E/A: 0.80 E'Medial: 8.16 E/E' Med: 9.20 E' Laterial: 7.07 E/E' Lat: 10.60 Right Ventricle TAPSE (mm): 18.40 TVS' Daniel: 13.70 Tricuspid Valve RA Press: 3.00 Great Vessels Aorta Sinus of Valsalva: 2.70 2.0-3.5 cm Ao Asc: 3.10 2.1-3.4 cm Pulmonary Valve PV Pk Daniel: 1.05 Peak PV Grad: 4.00 Updated in Other Vendor System with Status of Final Rich Fritz MD electronically signed on 07/26/2024 11:20:14 PM with status of Final
[2024-07-25 07:48] LABS: Glucose, Whole Blood 237 mg/dL (60-115)
[2024-07-25] MEDS: Fenofibrate 54 MG TABLET PO (09:30)
[2024-07-25] MEDS: Insulin Glargine,Hum.rec.anlog 100 UNIT/ML 10 ML VIAL 40 UNIT SUBCUT (09:30)
[2024-07-25] MEDS: Aspirin 81 MG TAB.CHEW PO (09:30)
[2024-07-25] MEDS: Tamsulosin HCL 0.4 MG CAPSULE PO (09:30)
[2024-07-25] MEDS: Atorvastatin Calcium 80 MG TABLET PO (09:30)
[2024-07-25] MEDS: Empagliflozin 25 MG TABLET PO (09:30)
[2024-07-25] MEDS: ARIPiprazole 30 MG TABLET PO (09:30)
[2024-07-25] MEDS: buPROPion HCl XL 150 MG TAB.ER.24H PO (09:30)
[2024-07-25] MEDS: 0.9 % Sodium Chloride Flush 3 ML SYRINGE IVFLUSH ×3 (09:31→20:31)
[2024-07-25] MEDS: Insulin Lispro 100 UNIT/ML 3 ML VIAL SUBCUT ×4 (09:31→20:35)
[2024-07-25] MEDS: Acetaminophen 325 MG TABLET 650 MG PO (09:52)
--- NOTE | 2024-07-25 11:46 | MHC.CM.PN ---
EMR REVIEWED, PT W/ACUTE CVA, PER HOSPITALIST NEURO/ECHO PENDING, PT DECLINES NEED FOR OT AND WILL LIKELY NOT NEED PT EITHER HOWEVER THEY WILL REVISIT. 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 PT'S GOAL FOR DC IS HOME TODAY VS TOMORROW 07/26. PCP ON FILE VERIFIED AND COPY OF HCP REQUESTED, JUAN RAMON REPORTS COPY IS AT PT'S PCP OFFICE THEY COMPLETED FORM THERE, PT VERIFIES JUAN RAMON [phone] IS PT'S HCP.
[2024-07-25] MEDS: Enoxaparin Sodium 40 MG/0.4 ML SYRINGE SUBCUT (12:16)
[2024-07-25 13:31] LABS: Glucose, Whole Blood 282 mg/dL (60-115)
--- NOTE | 2024-07-25 14:18 | MHC.STROKE ---
Met with patient and daughter in room 487. Stroke Education provided. Child Care Center Administrator offered, patient declined. Stroke pamphlet given/reviewed. Discussed medical history, medications, diet, activity, and social history. All questions answered. Will continue to assist as needed.
[2024-07-25 15:43] LABS: Glucose, Whole Blood 242 mg/dL (60-115)
--- NOTE | 2024-07-25 15:56 | P.CNNE_ITS ---
History of Present Illness Data of Consult Service Date: 07/25/24 Primary Care Provider: Lou Oliveira MD [facility] Reason for consult: Facial droop This is a 63-year-old male with a h/o ?HLD, HTN, poorly controlled insulin- dependent type 2 diabetes who presented to the ED for evaluation right-sided facial droop and difficulty speaking noticed this morning. Pt lives alone but is regularly checked in on by his daughter. On Sunday pt went to adult daycare program and earlier this morning was seen by VNA who administered his medications. Neither mentioned anything about change in appearance or activity. Daughter notes when she saw pt this morning noticed he had a right-sided facial droop and his speech sounded ?garbled?. The pt himself has not noticed any change to his appearance, and denies any acute medical complaints at this time. Reports feels at his baseline. No headache or acute vision changes. No hemiparesis, difficulty walking, or problems grasping or holding onto objects. Denies shortness or breath or difficulty breathing. No chest pain/pressure, palpitations. He has significant psychiatric hx which prevents him from fully taking care of himself. Has a long hx of uncontrolled diabetes as he does not follow a strict diet. Has family hx of cardiac issues on father side, and mother of a stroke. ? Labs: triglycerides 0, and HLD 26. No leukocytosis. CTA of head and neck showed 70% stenosis of left ICA in less than 60% stenosis of right ICA secondary to calcified plaque. CT brain reviewed and found to be negative. [facility] Past Medical History Medical History (Updated 07/25/24 @ 16:09 by Connor Johnson MD) Diabetes Hyperlipidemia Hypertension Social History Social History Household Members: None Housing: Apartment Do you presently have visiting nurse or other home services: Yes (RN 1x/wk for meds, [employer] dtr 3-4x/wk) Alcohol intake: former Patient Tobacco Use Status: Current everyday Tobacco user Tobacco use type: Cigarette Cigarette Packs Per Day: 1 Cigarettes Per Day: 20.0 Years Smoked: 50 Advance Directives Date on File: 07/24/24 service: No Meds Allergies Allergy/AdvReac Type Severity Reaction Status Date / Time haloperidol [From Haldol] Allergy Rash Verified 07/24/24 10:12 Active Medications: Current Medications Acetaminophen (Acetaminophen 325 Mg Tablet) 650 mg PO Q6H PRN PRN Reason: Pain, Mild 1-3,fever,headache Last Admin: 07/25/24 09:52 Dose: 650 mg Aripiprazole (Aripiprazole 30 Mg Tablet) 30 mg PO DAILY [facility] Last Admin: 07/25/24 09:30 Dose: 30 mg Aspirin (Aspirin 81 Mg Tab.Chew) 81 mg PO DAILY [facility] Last Admin: 07/25/24 09:30 Dose: 81 mg Atorvastatin Calcium (Atorvastatin Calcium 80 Mg Tablet) 80 mg PO DAILY [facility] Last Admin: 07/25/24 09:30 Dose: 80 mg Bupropion HCl (Bupropion Hcl Xl 150 Mg Tab.Er.24h) 150 mg PO DAILY [facility] Last Admin: 07/25/24 09:30 Dose: 150 mg Calcium Carbonate (Calcium Carbonate 750 Mg Tab.Chew) 750 mg PO Q4H PRN PRN Reason: Heartburn Clonazepam (Clonazepam 0.5 Mg Tablet) 0.25 mg PO BID PRN PRN Reason: Anxiety Dextrose (Dextrose 50 % 25 Gm/50 Ml Syringe) 25 gm IVPUSH Q15M PRN; Protocol PRN Reason: per Hypoglycemia Standing Ord. Diphenhydramine HCl (Diphenhydramine Hcl 25 Mg Capsule) 50 mg PO BEDTIME PRN PRN Reason: Sleep Empagliflozin (Empagliflozin 25 Mg Tablet) 25 mg PO DAILY [facility] Last Admin: 07/25/24 09:30 Dose: 25 mg Enoxaparin Sodium (Enoxaparin Sodium 40 Mg/0.4 Ml Syringe) 40 mg SUBCUT Q24H [facility] Last Admin: 07/25/24 12:16 Dose: 40 mg Fenofibrate (Fenofibrate 54 Mg Tablet) 54 mg PO DAILY [facility] Last Admin: 07/25/24 09:30 Dose: 54 mg Glucose (Glucose Gel 15 Gm Gel..Gram.) 15 gm PO Q15M PRN; Protocol PRN Reason: per Hypoglycemia Standing Ord. Insulin Glargine (Insulin Glargine,Hum.Rec.Anlog 100 Unit/Ml 10 Ml Vial) 40 unit SUBCUT DAILY [facility] Last Admin: 07/25/24 09:30 Dose: 40 unit Insulin Human Lispro (Insulin Lispro 100 Unit/Ml 3 Ml Vial) 0 unit SUBCUT QIDACHS [facility]; Protocol Last Admin: 07/25/24 12:16 Dose: 4 unit Magnesium Hydroxide (Milk Of Magnesia 30 Ml Oral.Susp) 30 ml PO DAILY PRN PRN Reason: Constipation Melatonin (Melatonin 3 Mg Tablet) 6 mg PO BEDTIME PRN PRN Reason: Insomnia Omeprazole (Omeprazole 20 Mg Capsule.Dr) 20 mg PO DAILY@0630 [facility] Last Admin: 07/25/24 04:45 Dose: 20 mg Ondansetron HCl (Ondansetron Hcl 4 Mg/2 Ml Vial) 4 mg IVPUSH Q8H PRN PRN Reason: Nausea and Vomiting Sodium Chloride (0.9 % Sodium Chloride Flush 3 Ml Syringe) 3 ml IVFLUSH QSHIFT [facility] Last Admin: 07/25/24 09:31 Dose: 3 ml Tamsulosin HCl (Tamsulosin Hcl 0.4 Mg Capsule) 0.4 mg PO DAILY [facility] Last Admin: 07/25/24 09:30 Dose: 0.4 mg Home Medications ?Medication ?Instructions ?Recorded ?Confirmed ?Last Taken ?Type aspirin 81 mg tablet,delayed 81 mg PO DAILY 11/06/23 07/24/24 07/24/24 History release atorvastatin 40 mg tablet 40 mg PO DAILY 11/06/23 07/24/24 07/24/24 History lisinopril 20 mg tablet 20 mg PO DAILY 11/06/23 07/24/24 07/24/24 History metformin 500 mg tablet,extended 2,000 mg PO DAILY 11/06/23 07/24/24 07/24/24 History release 24 hr aripiprazole 30 mg tablet 30 mg PO DAILY 07/24/24 07/24/24 07/24/24 History bupropion HCl 200 mg tablet,12 hr 200 mg PO DAILY 07/24/24 07/24/24 07/24/24 History sustained-release cholecalciferol (vitamin D3) 50 100 mcg PO DAILY 07/24/24 07/24/24 07/24/24 History mcg (2,000 unit) capsule (Vitamin D3) clonazepam 0.5 mg tablet 0.25 mg PO BID PRN Anxiety 07/24/24 07/24/24 Unknown History diphenhydramine HCl 50 mg capsule 50 mg PO BEDTIME PRN Sleep 07/24/24 07/24/24 Unknown History (Banophen) empagliflozin 25 mg tablet 25 mg PO DAILY 07/24/24 07/24/24 07/24/24 History (Jardiance) icosapent ethyl 1 gram capsule 2 g PO BID 07/24/24 07/24/24 07/24/24 History (Vascepa) insulin glargine 100 unit/mL (3 68 unit subcut DAILY 07/24/24 07/24/24 07/24/24 History mL) subcutaneous pen (Lantus Solostar U-100 Insulin) melatonin 3 mg tablet 6 mg PO BEDTIME PRN Insomnia 07/24/24 07/24/24 Unknown History omeprazole 20 mg capsule,delayed 20 mg PO DAILY@0630 07/24/24 07/24/24 07/24/24 History release tamsulosin 0.4 mg capsule 0.4 mg PO DAILY 07/24/24 07/24/24 07/24/24 History tirzepatide 10 mg/0.5 mL 10 mg subcut TH 07/24/24 07/24/24 07/17/24 History subcutaneous pen injector (Mounjaro) Physical Exam 2 Vital Signs: Vital Signs: Last Vital Signs Temp 98.0 F 07/25/24 15:51 Pulse 83 07/25/24 15:51 Resp 18 07/25/24 15:51 BP 121/66 07/25/24 15:51 Pulse Ox 95 07/25/24 15:51 O2 Del Method Room Air 07/25/24 15:51 BMI result Body Mass Index 31.4 Neuro: Other: Right peripheral facial palsy, otherwise normal neuro exam. 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 No evidence of stroke on clinical exam , CTA or CT. He can be discharged. Expect recovery in 8 weeks. No need for steroids because of his out of control DM. Treat diabetes and hyperlipidemia Procedures Date of Service Date of Service: 07/25/24
--- NOTE | 2024-07-25 15:56 | HO.PM.IMPN ---
Subjective Subjective Date of Service: 07/25/24 Interval History: Being followed for acute CVA with right facial droop/slurred speech Patient awake alert offers no acute complaints No acute events overnight Review of Systems All other system reviewed and are negative Physical Exam Vital Signs: Vital Signs: Last Vital Signs Temp 98.0 F 07/25/24 15:51 Pulse 83 07/25/24 15:51 Resp 18 07/25/24 15:51 BP 121/66 07/25/24 15:51 Pulse Ox 95 07/25/24 15:51 O2 Del Method Room Air 07/25/24 15:51 BMI result Body Mass Index 31.4 Const: Other: General resting comfortably in no acute distress. Neck no JVD. CVS regular rate rhythm, Respiratory lungs clear to auscultation, no respiratory distress, no wheeze, no rhonchi. Gastrointestinal abdomen soft, non tender, bowel sounds audible Extremities no edema. Neuro right-sided facial droop, speech mild dysarthria, normal strength upper and lower extremity, no pronator drift, alert oriented x3 Skin no rash, no rash Psych appropriate affect Objective Data Active Medications Acetaminophen (Acetaminophen 325 Mg Tablet) 650 mg PO Q6H PRN PRN Reason: Pain, Mild 1-3,fever,headache Last Admin: 07/25/24 09:52 Dose: 650 mg Documented By: DOMINGO Aripiprazole (Aripiprazole 30 Mg Tablet) 30 mg PO DAILY [facility] Last Admin: 07/25/24 09:30 Dose: 30 mg Documented By: DOMINGO Aspirin (Aspirin 81 Mg Tab.Chew) 81 mg PO DAILY [facility] Last Admin: 07/25/24 09:30 Dose: 81 mg Documented By: DOMINGO Atorvastatin Calcium (Atorvastatin Calcium 80 Mg Tablet) 80 mg PO DAILY [facility] Last Admin: 07/25/24 09:30 Dose: 80 mg Documented By: DOMINGO Bupropion HCl (Bupropion Hcl Xl 150 Mg Tab.Er.24h) 150 mg PO DAILY [facility] Last Admin: 07/25/24 09:30 Dose: 150 mg Documented By: DOMINGO Calcium Carbonate (Calcium Carbonate 750 Mg Tab.Chew) 750 mg PO Q4H PRN PRN Reason: Heartburn Clonazepam (Clonazepam 0.5 Mg Tablet) 0.25 mg PO BID PRN PRN Reason: Anxiety Dextrose (Dextrose 50 % 25 Gm/50 Ml Syringe) 25 gm IVPUSH Q15M PRN; Protocol PRN Reason: per Hypoglycemia Standing Ord. Diphenhydramine HCl (Diphenhydramine Hcl 25 Mg Capsule) 50 mg PO BEDTIME PRN PRN Reason: Sleep Empagliflozin (Empagliflozin 25 Mg Tablet) 25 mg PO DAILY [facility] Last Admin: 07/25/24 09:30 Dose: 25 mg Documented By: DOMINGO Enoxaparin Sodium (Enoxaparin Sodium 40 Mg/0.4 Ml Syringe) 40 mg SUBCUT Q24H [facility] Last Admin: 07/25/24 12:16 Dose: 40 mg Documented By: DOMINGO Fenofibrate (Fenofibrate 54 Mg Tablet) 54 mg PO DAILY [facility] Last Admin: 07/25/24 09:30 Dose: 54 mg Documented By: DOMINGO Glucose (Glucose Gel 15 Gm Gel..Gram.) 15 gm PO Q15M PRN; Protocol PRN Reason: per Hypoglycemia Standing Ord. Insulin Glargine (Insulin Glargine,Hum.Rec.Anlog 100 Unit/Ml 10 Ml Vial) 40 unit SUBCUT DAILY [facility] Last Admin: 07/25/24 09:30 Dose: 40 unit Documented By: DOMINGO Insulin Human Lispro (Insulin Lispro 100 Unit/Ml 3 Ml Vial) 0 unit SUBCUT QIDACHS [facility]; Protocol Last Admin: 07/25/24 12:16 Dose: 4 unit Documented By: DOMINGO Magnesium Hydroxide (Milk Of Magnesia 30 Ml Oral.Susp) 30 ml PO DAILY PRN PRN Reason: Constipation Melatonin (Melatonin 3 Mg Tablet) 6 mg PO BEDTIME PRN PRN Reason: Insomnia Omeprazole (Omeprazole 20 Mg Capsule.Dr) 20 mg PO DAILY@0630 [facility] Last Admin: 07/25/24 04:45 Dose: 20 mg Documented By: ISATU Ondansetron HCl (Ondansetron Hcl 4 Mg/2 Ml Vial) 4 mg IVPUSH Q8H PRN PRN Reason: Nausea and Vomiting Sodium Chloride (0.9 % Sodium Chloride Flush 3 Ml Syringe) 3 ml IVFLUSH QSHIFT [facility] Last Admin: 07/25/24 09:31 Dose: 3 ml Documented By: DOMINGO Tamsulosin HCl (Tamsulosin Hcl 0.4 Mg Capsule) 0.4 mg PO DAILY [facility] Last Admin: 07/25/24 09:30 Dose: 0.4 mg Documented By: DOMINGO Labs 07/24/24 10:41 07/24/24 10:40 Labs: Laboratory Results - last 24 hr 07/24/24 07/24/24 07/24/24 17:29 18:05 20:39 POC Glucose 166 H 198 H 236 H 07/25/24 07/25/24 07/25/24 07:45 11:58 15:33 POC Glucose 237 H 282 H 242 H Assessment and Plan (1) Hyperglycemia: Status: Acute (2) Acute ischemic left MCA stroke: Status: Acute (3) Facial droop: Status: Acute Plan 63-year-old male with a PMH significant for?HLD, HTN, poorly controlled insulin-dependent type 2 diabetes who presents to the ED for evaluation right-sided facial droop and difficulty speaking noticed this morning. Pt will be admitted to the hospital for treatment and further evaluation of right-sided facial droop concerning for acute CVA of left MCA. Acute CVA of left MCA right-sided facial droop, CTA of head showing dense signed left MCA Last known well time Sunday uncontrolled diabetes, hyperlipidemia, carotid stenosis and atherosclerotic disease Continue aspirin 81 mg daily Increase atorvastatin 40 mg daily to 80 mg daily Neurology consult Hold on MRI pending Neurology consult as CTA of head showing likely acute CVA PT recommend home service with PT Hypertriglyceridemia Triglycerides 2250 Atorvastatin 80 mg daily as above Started fenofibrate 54 mg daily Carotid stenosis CTA of head and neck showed 70% stenosis of left ICA and less than 60% stenosis of right ICA secondary to calcified plaques Treat hyperlipidemia as above Seen by vascular surgery they recommended echocardiogram report pending and outpatient follow-up Insulin-dependent type 2 diabetes with hyperglycemia POC 394 at time of presentation Continue sliding scale insulin,Hold metformin Continue Jardiance,hb A1c 8.7 Diabetic diet Question of cognitive impairment Daughter notes pt with ?memory issues? for the past few years OT evaluation with MoCA HTN BP well-controlled, Hold lisinopril and follow BP GERD Continue PPI BPH Continue tamsulosin Full Code DVT Prophylaxis: Lovenox Pt will require continued inpatient hospitalization for treatment of?acute CVA of left MCA requiring close cardiac and neurological monitoring, as well as specialist consultation with Neurology and safe disposition. Quality Stroke Does the patient have a stroke diagnosis?: Yes Reason for No Anti-thrombotic by Day Two: N/A - Med Ordered (Aspirin given. No tNK as pt's last known well time 2 days prior, well outside of therapeutic window.) VTE Prior VTE?: No VTE Risk Level:: Medical - moderate - high VTE Device Contraindication: Treatment Not Indicated VTE Drug Contraindication: N/A - Med Ordered
[2024-07-25 20:39] LABS: Glucose, Whole Blood 250 mg/dL (60-115)
[2024-07-26 03:44] VITALS: BP 114/55; PULSE 56; RESP 18; TEMP 37.1; O2SAT 96
[2024-07-26] MEDS: Omeprazole 20 MG CAPSULE.DR PO (05:44)
[2024-07-26 07:34] LABS: Glucose, Whole Blood 302 mg/dL (60-115)
[2024-07-26 07:59] VITALS: BP 135/76; PULSE 87; RESP 20; TEMP 36.2; O2SAT 96
[2024-07-26] MEDS: Insulin Lispro 100 UNIT/ML 3 ML VIAL SUBCUT ×2 (08:23→12:12)
[2024-07-26] MEDS: ARIPiprazole 30 MG TABLET PO (08:23)
[2024-07-26] MEDS: Atorvastatin Calcium 80 MG TABLET PO (08:23)
[2024-07-26] MEDS: Fenofibrate 54 MG TABLET PO (08:23)
[2024-07-26] MEDS: Aspirin 81 MG TAB.CHEW PO (08:23)
[2024-07-26] MEDS: Tamsulosin HCL 0.4 MG CAPSULE PO (08:23)
[2024-07-26] MEDS: Empagliflozin 25 MG TABLET PO (08:23)
[2024-07-26] MEDS: buPROPion HCl XL 150 MG TAB.ER.24H PO (08:23)
[2024-07-26] MEDS: 0.9 % Sodium Chloride Flush 3 ML SYRINGE IVFLUSH (08:24)
[2024-07-26] MEDS: Insulin Glargine,Hum.rec.anlog 100 UNIT/ML 10 ML VIAL 40 UNIT SUBCUT (08:24)
--- NOTE | 2024-07-26 11:54 | PM.DS ---
DS: Providers Provider Date of Service: 07/26/24 Date of admission: 07/24/24 12:33 Date of discharge: 07/26/24 Primary care physician: Lou Oliveira MD Consults: 07/24/24 12:38 Consult to Neurology Routine Consulting Provider: [facility] Reason for consultation: Dense signed left MCA 07/24/24 13:21 Consult to Vascular Surgery Routine Consulting Provider: [facility] [place] [facility] Reason for consultation: Bilateral carotid stenosis, acute CVA DS: Diagnosis Discharge Diagnosis (1) Villa's palsy: Status: Acute (2) Hyperglycemia: Status: Acute (3) Facial droop: Status: Acute DS: Summary Hospital Course Hospital Course: 63-year-old male with a PMH significant for?HLD, HTN, poorly controlled insulin-dependent type 2 diabetes who presents to the ED for evaluation right-sided facial droop and difficulty speaking noticed this morning. Pt lives alone but his regularly checked in on by his daughter. Last known well time Sunday afternoon. On Sunday pt went to adult daycare program and earlier this morning was seen by VNA who administered his medications. Neither mentioned anything about change in appearance or activity. Daughter notes when she saw pt this morning noticed he had a right-sided facial droop and his speech sounded ?garbled?. The pt himself has not noticed any change to his appearance, and denies any acute medical complaints at this time. Reports feels at his baseline. No headache or acute vision changes. No hemiparesis, difficulty walking, or problems grasping or holding onto objects. Denies shortness or breath or difficulty breathing. No chest pain/pressure, palpitations. Denies fever, chills, nausea, vomiting, abdominal pain. Daughter notes that pt has significant psychiatric hx which prevents him from fully taking care of himself. Has a long hx of uncontrolled diabetes as he does not follow a strict diet. Has family hx of cardiac issues on father side, and mother of a stroke. ? In the ED pt's vitals stable and WNL. Labs were significant for creatinine 1.34, initial POC 394, triglycerides 2050, and HLD 26. No leukocytosis. Stable H&H. No significant electrolyte abnormalities. Troponin negative. CXR showed no acute pulmonary disease. CT?of head showed dense signed left MCA concerning for acute nonhemorrhagic stroke of left MCA territory. CTA of head and neck showed 70% stenosis of left ICA in less than 60% stenosis of right ICA secondary to calcified plaque. EKG demonstrated sinus rhythm with possible fusion complexes, but no evidence of significant ST elevations or depressions. Pt was treated with IVF, insulin 5 units IV, and aspirin. Hospital Course Patient admitted to telemetry where monitor failed to demonstrate any abnormal rhythms. Consultation was placed to Neurology who reviewed all imaging. 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 Neurology felt that given high sugars that a prednisone taper should be avoided. Initially discuss this with modifications to patient's regimen however given the degree of hyperglycemia patient can discuss this with his PCP he will need to make changes if prednisone is added. Seen by Physical therapy and deemed acceptable for home PT. Time Attestation Discharge Coordination Time (in mins): 35 Quality: Safe Use of Opioids Does Pt have an Active Cancer Diagnosis on the Problem List?: No Quality: Stroke Does the patient have a stroke diagnosis?: No Reason for No Anti-thrombotic at DC: N/A - Med Ordered Physical Exam Vital Signs: Vital Signs: Last Vital Signs Temp 97.2 F 07/26/24 07:59 Pulse 87 07/26/24 07:59 Resp 20 07/26/24 07:59 BP 135/76 07/26/24 07:59 Pulse Ox 96 07/26/24 07:59 O2 Del Method Room Air 07/26/24 07:59 BMI result Body Mass Index 31.4 Const: Other: Awake alert oriented x3 HEENT: Other: Right facial asymmetry Resp: Other: Clear to auscultation bilaterally no rales rhonchi or wheezes Cardio: Other: No S4; positive S1-S2; no S3 murmurs rubs or gallops GI: Other: Soft nontender nondistended normoactive bowel sounds Neuro: Other: Right peripheral facial palsy otherwise nonfocal exam Extrem: Other: No edema bilaterally DS: Data Data Completed and Pending Labs on day of discharge: Laboratory Results - last 24 hr 07/25/24 07/25/24 07/25/24 11:58 15:33 20:29 POC Glucose 282 H 242 H 250 H 07/26/24 07:21 POC Glucose 302 H Discharge Plan Discharge Anticipated Discharge Date/Time: 07/26/24 11:45 Patient Disposition: Home Health Service Discharge Diagnosis: Villa's palsy with right facial asymmetry Referrals: Lou Oliveira MD [Primary Care Provider] - 1 Week Discharge Medications: New atorvastatin 80 mg Tablet 80 mg PO DAILY Qty: 30 0RF insulin glargine [Lantus Solostar U-100 Insulin] 100 unit/mL (3 mL) insulin pen 80 unit subcut QAM Qty: 15 0RF Continued diphenhydramine HCl [Banophen] 50 mg capsule 50 mg PO BEDTIME PRN (Reason: Sleep) tamsulosin 0.4 mg capsule 0.4 mg PO DAILY omeprazole 20 mg capsule,delayed release(DR/EC) 20 mg PO DAILY@0630 cholecalciferol (vitamin D3) [Vitamin D3] 50 mcg (2,000 unit) capsule 100 mcg PO DAILY icosapent ethyl [Vascepa] 1 gram capsule 2 g PO BID Jardiance 25 mg tablet 25 mg PO DAILY Mounjaro 10 mg/0.5 mL pen injector 10 mg subcut TH clonazepam 0.5 mg Tablet 0.25 mg PO BID PRN (Reason: Anxiety) melatonin 3 mg Tablet 6 mg PO BEDTIME PRN (Reason: Insomnia) bupropion HCl 200 mg Tablet Sustained-Release 12 Hr 200 mg PO DAILY aripiprazole 30 mg Tablet 30 mg PO DAILY lisinopril 20 mg tablet 20 mg PO DAILY metformin 500 mg tablet extended release 24 hr 2,000 mg PO DAILY aspirin 81 mg tablet,delayed release (DR/EC) 81 mg PO DAILY Discontinued insulin glargine [Lantus Solostar U-100 Insulin] 100 unit/mL (3 mL) insulin pen 68 unit subcut DAILY atorvastatin 40 mg tablet 40 mg PO DAILY Discharge Orders: Discharge Order (Routine); Ordered 07/26/24 Ordered By: Jonah Rivera Diet: Advance to usual diet Activity on Discharge: As tolerated Stand Alone Forms: Patient Portal Discharge page Print Language: Welsh Care Plan Goals: Neurologist feels she will have Villa's palsy. Your taking metformin 2000 mg daily. Discuss with your primary the option of taking prednisone for Villa's palsy as your diabetes medicine we will need to be adjusted Health Concerns: Your atorvastatin has been increased to 80 mg daily. You need to actively quit smoking. Discuss these issues with your provider Plan of Treatment: Outpatient physical therapy and penitentiary has been ordered Assessment: See discharge summary
[2024-07-26 11:57] LABS: Glucose, Whole Blood 320 mg/dL (60-115)
[2024-07-26 12:00] VITALS: PULSE 76; RESP 16
--- NOTE | 2024-07-26 12:03 | MHC.CM.PN ---
Addendum entered by Elza Forbes 07/26/24 14:54: CM called [facility] to inform them that pt. is returning home because they have not responded in careport. The oncall person who answered, said she would let the nursing staff know that pt. in going home today. Original Note: Pt has been medically cleared for DC, he will go home via family transport and resume home care services from [facility].
[2024-07-26] MEDS: Enoxaparin Sodium 40 MG/0.4 ML SYRINGE SUBCUT (12:11)
[2024-07-26] MEDS: predniSONE 20 MG TABLET 60 MG PO (12:11)
== END 2024-07-26 15:34 | disposition home health service (06) | DRG 74 ==
LOC: HO.ED 12:18 → HO.EDOVER 12:45 → HO.IMC 17:57
PROVIDERS: Hospitalist; Admitting Provider Student in an Organized Health Care Education/Training Program; Emergency Provider Emergency Medicine; PCP Internal Medicine; Visit Provider Hospitalist
DX: G51.0 Bell's palsy (principal); I10 Essential (primary) hypertension; E11.65 Type 2 diabetes mellitus with hyperglycemia; K21.9 Gastro-esophageal reflux disease without esophagitis; N40.0 Benign prostatic hyperplasia without lower urinary tract symptoms; I65.23 Occlusion and stenosis of bilateral carotid arteries; E78.1 Pure hyperglyceridemia; F17.210 Nicotine dependence, cigarettes, uncomplicated; Z71.6 Tobacco abuse counseling; Z79.82 Long term (current) use of aspirin; Z79.4 Long term (current) use of insulin; Z79.84 Long term (current) use of oral hypoglycemic drugs; Z79.85 Long-term (current) use of injectable non-insulin antidiabetic drugs; Z79.899 Other long term (current) drug therapy
CPT/HCPCS: 36415; 70450; 70496; 70498; 71045; 80048; 80061; 82803; 82947; 83036; 84484; 85025; 85610; 85730; 93005; 93306; 97110; 97116; 97162; 97166; 99285; J1650; J7120; Q9957; Q9967

== ENCOUNTER → 2024-07-24 10:34 | Outpatient (BNV) | payer MEDICARE, SELFPAY | PROVIDERS: Admitting Provider Student in an Organized Health Care Education/Training Program; Emergency Provider Emergency Medicine; PCP Internal Medicine; Visit Provider Internal Medicine Cardiovascular Disease | DX: I63.9 Cerebral infarction, unspecified (principal) | CPT/HCPCS: 93010 ==

== ENCOUNTER → 2024-07-24 10:38 | Outpatient (BNV) | payer MEDICARE, SELFPAY | PROVIDERS: Emergency Provider Emergency Medicine; PCP Internal Medicine; Visit Provider Radiology Diagnostic Radiology | DX: R29.810 Facial weakness (principal) | CPT/HCPCS: 70450; 70496; 71045 ==

== ENCOUNTER 2024-07-24 12:33 | Outpatient (BNV) | payer OTHER, SELFPAY | END 2024-07-25 07:00 | PROVIDERS: Admitting Provider Student in an Organized Health Care Education/Training Program; Emergency Provider Emergency Medicine; PCP Internal Medicine; Visit Provider Internal Medicine Cardiovascular Disease | DX: I42.2 Other hypertrophic cardiomyopathy (principal) | CPT/HCPCS: 93306 ==

== ENCOUNTER → 2024-07-24 12:33 | Outpatient (BNV) | payer MEDICARE, SELFPAY | PROVIDERS: Admitting Provider Student in an Organized Health Care Education/Training Program; Emergency Provider Emergency Medicine; PCP Internal Medicine; Visit Provider Physician Assistant Surgical | DX: I65.23 Occlusion and stenosis of bilateral carotid arteries (principal) | CPT/HCPCS: 99222 ==

== ENCOUNTER → 2024-07-24 12:33 | Outpatient (BNV) | payer OTHER, SELFPAY | PROVIDERS: Admitting Provider Student in an Organized Health Care Education/Training Program; Emergency Provider Emergency Medicine; PCP Internal Medicine; Visit Provider Psychiatry & Neurology Neurology | DX: G51.0 Bell's palsy (principal) | CPT/HCPCS: 99222 ==

== ENCOUNTER → 2024-07-24 12:33 | Outpatient (BNV) | payer MEDICARE, SELFPAY | PROVIDERS: Admitting Provider Student in an Organized Health Care Education/Training Program; Emergency Provider Emergency Medicine; PCP Internal Medicine; Visit Provider Student in an Organized Health Care Education/Training Program | DX: I63.512 Cerebral infarction due to unspecified occlusion or stenosis of left middle cerebral artery (principal) | CPT/HCPCS: 99223; 99233; 99239 ==

== ENCOUNTER 2024-11-11 09:01 | Outpatient (RCR) | payer OTHER, SELFPAY | END 2024-12-18 15:43 | disposition home or self-care (01) | LOC: HO.PT 09:01 | PROVIDERS: PCP Internal Medicine; Visit Provider Registered Nurse | DX: M25.512 Pain in left shoulder (principal) | CPT/HCPCS: 97110; 97140; 97162; 97530 ==

== ENCOUNTER 2024-11-13 09:55 | Outpatient (AMB) | payer OTHER, SELFPAY ==
--- NOTE | 2024-11-13 09:56 | MHC.OFFVIS ---
Intake Visit Reasons: [facility] follow up for carotid stenosis Intake Note: Patient presents for carotid follow up. No complaints. Accompanied by: Self / Same As Patient Allergies haloperidol (From Haldol) Allergy (Verified 11/13/24 10:01) Rash HPI HPI [facility] follow up for carotid stenosis: Details: Very pleasant 63-year-old gentleman presents for evaluation regarding carotid stenosis. He had actually seen us back in July of this year regarding carotid stenosis. He had a stroke at that time. Reports that he has been doing well since that time and has had no interval issues. He is being maintained on aspirin and statin. He had failed to follow up as an outpatient but we were eventually able to reach him. He now presents for follow-up with CT angiogram which was performed on 07/24/2024. [facility] Medical History Acute ischemic left MCA stroke Diabetes Hyperlipidemia Hypertension Social History Household Members: None Housing: Apartment Do you presently have visiting nurse or other home services: Yes (RN 1x/wk for meds, [employer] dtr 3-4x/wk) Alcohol intake: former Patient Tobacco Use Status: Current everyday Tobacco user Tobacco use type: Cigarette Cigarette Packs Per Day: 1 Cigarettes Per Day: 20.0 Years Smoked: 50 Advance Directives Date on File: 07/24/24 service: No Review of Systems Const All systems reviewed & are unremarkable except as noted in HPI and below Reports no additional complaints ENT Reports Normal hearing present Card Denies chest pain, Denies chest pain at rest, Denies chest pain with activity and Denies pedal edema Resp Denies cough GI Denies abdominal pain Musc Denies abnormal gait, Denies muscle cramps and Denies radiating pain into limb Skin/Breast Denies skin ulcer and Denies wounds Neuro Reports Normal hearing present and Denies abnormal gait Psych Reports no additional complaints Physical Exam Const General: cooperative, healthy appearing and comfortable Orientation/consciousness: oriented to person, oriented to place and oriented to time HEENT Head: Yes normal to inspection Neck Neck: Yes normal visual inspection Carotids: no bruits Chest Chest palpation & inspection: normal inspection of the chest Resp Effort & Inspection: normal respiratory effort and able to speak in complete sentences Auscultation: clear to auscultation bilaterally, no crackles, no rales, no rhonchi and no wheezes Cardio Other: Obvious right facial droop Rate: regular rate Rhythm: regular rhythm Heart sounds: S1 normal heart sound present and S2 normal heart sound present Bruits: no carotid bruits Peripheral pulses: Peripheral pulses 2+ throughout GI Inspection: Yes normal to inspection Skin Wounds: no wounds Hair: normal Neuro General: oriented to person, oriented to place and oriented to time Cranial nerves: Yes CN's II-XII intact bilaterally and Yes Normal hearing present Cognition (Neuro): normal cognition Motor exam (neuro): 5/5 motor strength present throughout Extrem Other: venous exam: No significant superficial varicosities or spider telangiectasias, minimal edema General: No clubbing, No cyanosis and No edema Psych Appearance: grossly normal Mental Status: mental status grossly normal Speech and movement: Normal speech and movement present Assessment & Plan Assessment & Plan (1) Left carotid stenosis: Code(s): I65.22 - Occlusion and stenosis of left carotid artery Category: Medical Plan: In short patient had left carotid stenosis with stroke. He was found to have a nonhemorrhagic CVA of the left MCA. On CT angiogram the carotid is noted to be at 70%. Will require left carotid endarterectomy. Risks benefits complications including bleeding infection stroke and were discussed in detail with the patient. He understood and would like to move forward. Will require cardiac risk stratification prior to surgery. Coding Level of Care Code Est Pt Level 4 (83357) Diagnoses Left carotid stenosis I65.22
== END 2024-11-13 10:13 | disposition home or self-care (01) ==
LOC: HO.HVS 09:55
PROVIDERS: PCP Internal Medicine; Visit Provider Surgery Vascular Surgery
DX: I65.22 Occlusion and stenosis of left carotid artery (principal)
CPT/HCPCS: 99214

== ENCOUNTER → 2024-11-13 09:55 | Outpatient (BNVA) | payer OTHER, SELFPAY | PROVIDERS: PCP Internal Medicine; Visit Provider Surgery Vascular Surgery | DX: I65.22 Occlusion and stenosis of left carotid artery (principal) | CPT/HCPCS: 99212 ==

== ENCOUNTER 2024-12-02 10:37 | Outpatient (AMB) | payer OTHER, SELFPAY ==
--- NOTE | 2024-12-02 11:02 | A.OFFVIS_ITS ---
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 Endarterectomy Research Investigator Required: No Accompanied by: Self / Same As Patient Allergies haloperidol (From Haldol) Allergy (Verified 11/13/24 10:01) Rash Medication List - Last Reconciled 12/02/24 by Ar Crisostomo MD aripiprazole 30 mg PO DAILY aspirin 81 mg PO DAILY atorvastatin 80 mg PO DAILY bupropion HCl SR 200 mg PO DAILY cholecalciferol (vitamin D3) (Vitamin D3) 100 mcg PO DAILY clonazepam 0.25 mg PO BID PRN diphenhydramine HCl (Banophen) 50 mg PO BEDTIME PRN empagliflozin (Jardiance) 25 mg PO DAILY icosapent ethyl (Vascepa) 2 grams PO BID insulin glargine (Lantus Solostar U-100 Insulin) 80 units (0.8 mL) subcut QAM lisinopril 20 mg PO DAILY melatonin 6 mg PO BEDTIME PRN metformin ER 2,000 mg PO DAILY omeprazole 20 mg PO DAILY@0630 tamsulosin 0.4 mg PO DAILY tirzepatide (Mounjaro) 10 mg subcut TH HPI Comments Details: Hilario is here for consultation regarding preoperative risk stratification for carotid endarterectomy. It seems that he was hospitalized in July of this year with a stroke. Per discharge summary, described to have hypertension, high lipids, poorly controlled diabetes, smoker who admitted for right facial droop and difficulty speaking. 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 Hence I am not entirely clear. Any case, he was seen by vascular surgery because of findings of carotid stenosis and there is a plan for carotid endarterectomy coming up. Patient himself does not have any clear-cut cardiac symptoms like angina but he does not appear to be too active because of back pain. As described above, numerous risk factors and also poorly controlled. [facility] Medical History (Updated 12/02/24 @ 12:25 by Ar Crisostomo MD) Acute ischemic left MCA stroke Diabetes Hyperlipidemia Hypertension Family History (Updated 12/02/24 @ 11:07 by Abimbola Villar CMA) Mother Stroke Social History Household Members: None Housing: Apartment Do you presently have visiting nurse or other home services: Yes (RN 1x/wk for meds, [employer] dtr 3-4x/wk) Alcohol intake: former Patient Tobacco Use Status: Current everyday Tobacco user Tobacco use type: Cigarette Cigarette Packs Per Day: 1 Cigarettes Per Day: 20.0 Years Smoked: 50 Advance Directives Date on File: 07/24/24 service: No Review of Systems Const Denies chills, Denies fatigue, Denies fever(s), Denies frequent falls, Denies weakness, Denies weight gain and Denies weight loss ENT Denies dizziness Card Denies chest pain, Denies leg edema, Denies lightheadedness, Denies palpitations, Denies dyspnea, Denies dyspnea on exertion and Denies orthopnea Resp Denies cough, Denies dyspnea and Denies dyspnea on exertion GI Denies bloating and Denies change in bowel habits Musc Denies muscle weakness, Denies numbness and Denies tingling Neuro Denies dizziness, Denies frequent falls, Denies numbness, Denies tingling and Denies weakness Endo Denies fatigue and Denies palpitations Physical Exam Vital Signs: Last Vital Signs Pulse 88 12/02/24 11:04 BP 90/64 12/02/24 11:20 BMI result Body Mass Index 29.2 Const General: comfortable and no acute distress Orientation/consciousness: patient oriented x3 HEENT Other: Unremarkable Head: Yes normal to inspection Neck Neck: Yes normal visual inspection Chest Chest palpation & inspection: normal inspection of the chest Resp Auscultation: clear to auscultation bilaterally Cardio Palpation: normal PMI Heart sounds: S1 normal heart sound present, S2 normal heart sound present, no gallops, no murmurs and no rubs GI Palpation (GI): Soft to palpation Back/Spine/Pelvis Other: unremarkable Skin General skin exam: no rashes or lesions noted Neuro General: patient oriented x3 Extrem General: Yes normal to inspection Psych Mental Status: mental status grossly normal Office Procedures EKG Details: EKG with underlying sinus rhythm at 88/Min; downsloping T-waves in the inferior [place] [id number], Complete Assessment & Plan Assessment & Plan (1) Preoperative cardiovascular examination: Code(s): Z01.810 - Encounter for preprocedural cardiovascular examination Category: Medical (2) Bilateral carotid artery stenosis: Code(s): I65.23 - Occlusion and stenosis of bilateral carotid arteries Category: Medical (3) Type 2 diabetes mellitus with unspecified complications: Code(s): E11.8 - Type 2 diabetes mellitus with unspecified complications Category: Medical (4) Hypertension: Code(s): I10 - Essential (primary) hypertension Category: Medical (5) Hyperlipidemia: Code(s): E78.5 - Hyperlipidemia, unspecified Category: Medical Plan Head CTA reported to have dense left MCA territory stroke. CTA with 70% stenosis in the left internal carotid artery < 60% in the right internal carotid artery. Echocardiogram with LVEF of 60-65%. Moderate septal hypertrophy. No significant valvular findings. Diabetes management is suboptimal as the hemoglobin A1c is quite high at 8.7%. Lipids are also poorly controlled as the triglycerides are >2000 and LDL was not calculated. He is hypotensive today and we checked both sides. Suspect he may have subclavian disease causing low blood pressure readings as there is a weak left radial pulse. Overall, numerous poorly controlled risk factors and established vascular disease and high likelihood of underlying coronary disease. We will proceed with a diagnostic catheterization for further evaluation. We will contact PCP to decrease the lisinopril dose as it seems that he gets his medications in a pack. Otherwise, aggressive risk factor modification and we will need to get some notes from his PCP as well. Orders: Orders Cardiac Cath LT Diagnostic Today I25.10 - Atherosclerotic heart disease of [place] coronary artery without angina pectoris, Z01.810 - Encounter for preprocedural cardiovascular examination Complete Blood Count no Diff Today Z01.810 - Encounter for preprocedural cardiovascular examination Prothrombin Time INR Today I25.10 - Atherosclerotic heart disease of [place] coronary artery without angina pectoris, Z01.810 - Encounter for preprocedural cardiovascular examination Basic Metabolic Panel Today Z01.810 - Encounter for preprocedural cardiovascular examination Coding Level of Care Code New Pt Level 5 (83240) Complex EM visit Add On G2211 Diagnoses Preoperative cardiovascular examination Z01.810 Bilateral carotid artery stenosis I65.23 Type 2 diabetes mellitus with unspecified complications E11.8 Hypertension I10 Hyperlipidemia E78.5 CPT Codes EKG - CPT: [id number], Complete ([id number])
[2024-12-02 11:04] VITALS: BP 80/62; PULSE 88; BMI 29.2
[2024-12-02 11:20] VITALS: BP 90/64
== END 2024-12-02 11:24 | disposition home or self-care (01) ==
LOC: HO.HCS 10:37
PROVIDERS: PCP Internal Medicine; Visit Provider Internal Medicine
DX: Z01.810 Encounter for preprocedural cardiovascular examination (principal); I65.23 Occlusion and stenosis of bilateral carotid arteries; E11.8 Type 2 diabetes mellitus with unspecified complications; I10 Essential (primary) hypertension; E78.5 Hyperlipidemia, unspecified
CPT/HCPCS: 93010; 99204; G2211

== ENCOUNTER 2024-12-02 10:37 | Outpatient (REF) | payer OTHER, SELFPAY ==
[2024-12-02 16:03] LABS: Hematocrit 42.8 % (42.0-52.0); Hemoglobin 14.0 g/dl (14.0-18.0); Mean Corpuscular HGB Conc 32.7 g/dl (31.0-36.0); Mean Corpuscular Hemoglobin 30.5 pg (27.0-33.0); Mean Corpuscular Volume 93.2 fL (80.0-98.0); NRBC Abs Auto 0.000 X10*3/uL (0.0-0.012); NRBC Pct Auto 0.0 /100WBC (0.0-0.2); Platelet Count 249 X10*3/uL (160-400); Red Blood Count 4.59 X10*6/uL (4.60-5.80); White Blood Count 10.3 X10*3/uL (4.8-10.8)
[2024-12-02 16:08] LABS: INTERNATIONAL NORM RATIO 1.0 (0.9-1.1); Prothrombin Time 11.1 SEC (10.9-12.4)
[2024-12-02 16:26] LABS: Anion Gap 19 (12-20); Blood Urea Nitrogen 25 mg/dL (9-16); Calcium 8.9 mg/dL (8.4-10.2); Carbon Dioxide 17 mmol/L (22-29); Chloride 109 mmol/L (96-108); Estimated Glomerular Filt Rate 51; Potassium 4.6 mmol/L (3.3-5.1); Sodium 140 mmol/L (135-145)
== END 2024-12-02 10:38 | disposition home or self-care (01) ==
LOC: HO.LAB 10:37
PROVIDERS: PCP Internal Medicine; Visit Provider Internal Medicine
DX: Z01.810 Encounter for preprocedural cardiovascular examination (principal); I65.23 Occlusion and stenosis of bilateral carotid arteries; I25.10 Atherosclerotic heart disease of native coronary artery without angina pectoris; I10 Essential (primary) hypertension; E11.8 Type 2 diabetes mellitus with unspecified complications; E78.5 Hyperlipidemia, unspecified; Z79.82 Long term (current) use of aspirin; Z79.4 Long term (current) use of insulin; Z79.84 Long term (current) use of oral hypoglycemic drugs
CPT/HCPCS: 36415; 80048; 85027; 85610; 93005; 99202

== ENCOUNTER → 2024-12-04 23:59 | Outpatient (BNV) | payer OTHER, SELFPAY | PROVIDERS: PCP Internal Medicine; Visit Provider Internal Medicine Cardiovascular Disease | DX: R07.9 Chest pain, unspecified (principal); Z01.810 Encounter for preprocedural cardiovascular examination | CPT/HCPCS: 93458; 99152 ==

== ENCOUNTER 2024-12-11 14:05 | Outpatient (AMB) | payer OTHER, SELFPAY ==
[2024-12-11 14:36] VITALS: BP 110/54; PULSE 84; BMI 30.3
--- NOTE | 2024-12-11 14:36 | A.OFFVIS_ITS ---
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: No Accompanied by: Self / Same As Patient Allergies haloperidol (From Haldol) Allergy (Verified 11/13/24 10:01) Rash Medication List - Last Reconciled 12/11/24 by Sascha Ruiz NP aripiprazole 30 mg PO DAILY aspirin 81 mg PO DAILY atorvastatin 80 mg PO DAILY bupropion HCl SR 200 mg PO DAILY cholecalciferol (vitamin D3) (Vitamin D3) 100 mcg PO DAILY clonazepam 0.25 mg PO BID PRN diphenhydramine HCl (Banophen) 50 mg PO BEDTIME PRN empagliflozin (Jardiance) 25 mg PO DAILY icosapent ethyl (Vascepa) 2 grams PO BID insulin glargine (Lantus Solostar U-100 Insulin) 80 units (0.8 mL) subcut QAM lisinopril 20 mg PO DAILY melatonin 6 mg PO BEDTIME PRN metformin ER 2,000 mg PO DAILY omeprazole 20 mg PO DAILY@0630 tamsulosin 0.4 mg PO DAILY tirzepatide (Mounjaro) 10 mg subcut TH HPI Comments Details: This is a 64-year-old male patient who is coming in for a follow-up visit status post cardiac catheterization. Patient with a history of hypertension, hyperlipidemia, diabetes, and Villa's palsy per Neurology. Patient's CT head did report left MCA territory stroke and is being followed by vascular surgery for findings of carotid stenosis. Given his high risk factors, patient came in to see us for preop risk stratification for carotid endarterectomy. Subsequently, patient underwent cardiac catheterization at [facility] with Dr. Fritz. Today, patient reports feeling well overall without any cardiac symptoms of exertional chest pain, shortness of breath, palpitations, dizziness, orthopnea, PND, leg edema, presyncope, or syncope. Patient is reporting compliance with all his medications. REPLACED BY [facility] Medical History Acute ischemic left MCA stroke Diabetes Hyperlipidemia Hypertension Surgical History S/P cardiac cath Family History Mother Stroke Social History Household Members: None Housing: Apartment Do you presently have visiting nurse or other home services: Yes (RN 1x/wk for meds, [employer] dtr 3-4x/wk) Alcohol intake: former Patient Tobacco Use Status: Current everyday Tobacco user Tobacco use type: Cigarette Cigarette Packs Per Day: 1 Cigarettes Per Day: 20.0 Years Smoked: 50 Advance Directives Date on File: 07/24/24 service: No Review of Systems Const Denies chills, Denies fatigue, Denies fever(s), Denies frequent falls, Denies weakness, Denies weight gain and Denies weight loss ENT Denies dizziness Card Denies chest pain, Denies leg edema, Denies lightheadedness, Denies palpitations, Denies dyspnea and Denies dyspnea on exertion Resp Denies cough, Denies dyspnea and Denies dyspnea on exertion GI Denies hematochezia Musc Denies abnormal gait, Denies muscle weakness, Denies numbness, Denies radiating pain into limb and Denies tingling Neuro Denies abnormal gait, Denies dizziness, Denies frequent falls, Denies numbness, Denies tingling and Denies weakness Endo Denies fatigue and Denies palpitations Physical Exam Vital Signs: Last Vital Signs Pulse 84 12/11/24 14:36 BP 110/54 L 12/11/24 14:36 BMI result Body Mass Index 30.3 Const General: cooperative, healthy appearing, comfortable and no acute distress Orientation/consciousness: patient oriented x3 HEENT Other: Residual right-sided facial droop with tearing in the right eye Head: Yes normal to inspection Neck Neck: Yes normal visual inspection, Yes trachea midline and Yes supple Chest Chest palpation & inspection: normal inspection of the chest Resp Effort & Inspection: normal respiratory effort Auscultation: clear to auscultation bilaterally, no crackles, no rales, no rhonchi and no wheezes Cardio Jugular venous distension: no JVD Palpation: normal PMI Rate: regular rate Rhythm: regular rhythm Heart sounds: S1 normal heart sound present, S2 normal heart sound present, no click, no gallops, no murmurs and no rubs Peripheral pulses: Peripheral pulses 2+ throughout GI Inspection: Yes normal to inspection Palpation (GI): Soft to palpation Auscultation: normal bowel sounds Skin General skin exam: no rashes or lesions noted Neuro General: patient oriented x3 Extrem General: Yes normal to inspection, No no pedal edema and No calf tenderness Psych Appearance: grossly normal Mental Status: mental status grossly normal Speech and movement: Normal speech and movement present Assessment & Plan Assessment & Plan (1) Status post cardiac catheterization: Code(s): Z98.890 - Other specified postprocedural states Plan: Given his history of bilateral carotid stenosis, ? stroke and risk factors of hypertension, hyperlipidemia, diabetes, former smoker, and obesity, patient underwent cardiac catheterization at [facility] with Dr. Fritz on 12/04/2024 that showed no significant coronary artery disease. Right wrist catheterization site is well healed. Patient's lipid panel shows very poorly controlled triglycerides over 1999. Continue statin and Vascepa therapy. Followed by PCP. Ideally LDL goal should be closer to 70s. (2) Hypertension: Code(s): I10 - Essential (primary) hypertension Category: Medical Plan: Blood pressure today is well-controlled. Continue current regimen. Advised monitoring blood pressures at home with a goal less than 130/80. (3) Hyperlipidemia: Code(s): E78.5 - Hyperlipidemia, unspecified Category: Medical Plan: As above. (4) Type 2 diabetes mellitus with unspecified complications: Code(s): E11.8 - Type 2 diabetes mellitus with unspecified complications Category: Medical Plan: Continue aggressive diabetes management with an A1c goal less than 7%. (5) Bilateral carotid artery stenosis: Code(s): I65.23 - Occlusion and stenosis of bilateral carotid arteries Category: Medical Plan: Followed by Dr. Camejo. Continue aspirin. (6) Preoperative cardiovascular examination: Code(s): Z01.810 - Encounter for preprocedural cardiovascular examination Category: Medical Plan: Patient can proceed with the carotid endarterectomy with the consideration that patient is at an intermediate cardiac risk. Advised heart healthy diet, regular exercise, losing weight, med compliance, and aggressive management of vascular risk factors. Follow up on an as-needed basis. In the interim, patient will call the office with any concerns or change in symptoms. This note was generated using voice recognition software. While every effort has been made to ensure accuracy and proper computer numerical control machinist, there may be occasional errors that could affect the content or meaning of the described symptoms. Coding Level of Care Code Est Pt Level 4 (60458) Complex EM visit Add On G2211 Diagnoses Status post cardiac catheterization Z98.890 Hypertension I10 Hyperlipidemia E78.5 Type 2 diabetes mellitus with unspecified complications E11.8 Bilateral carotid artery stenosis I65.23 Preoperative cardiovascular examination Z01.810 Time Spent (min) 31 Comment Time spent in reviewing the chart, test results, assessment, counseling and documentation.
== END 2024-12-11 15:04 | disposition home or self-care (01) ==
LOC: HO.HCS 14:06
PROVIDERS: PCP Internal Medicine
DX: Z98.890 Other specified postprocedural states (principal); I10 Essential (primary) hypertension; E78.5 Hyperlipidemia, unspecified; E11.8 Type 2 diabetes mellitus with unspecified complications; I65.23 Occlusion and stenosis of bilateral carotid arteries; Z01.810 Encounter for preprocedural cardiovascular examination
CPT/HCPCS: 99214; G2211

== ENCOUNTER → 2024-12-11 14:05 | Outpatient (BNVA) | payer OTHER, SELFPAY | PROVIDERS: PCP Internal Medicine | DX: Z01.810 Encounter for preprocedural cardiovascular examination (principal); I10 Essential (primary) hypertension; E78.5 Hyperlipidemia, unspecified; E11.8 Type 2 diabetes mellitus with unspecified complications; I65.23 Occlusion and stenosis of bilateral carotid arteries | CPT/HCPCS: 99212 ==

== ENCOUNTER → 2024-12-29 06:16 | Outpatient (BNV) | payer OTHER, SELFPAY | PROVIDERS: PCP Internal Medicine; Visit Provider Surgery Vascular Surgery | DX: I65.22 Occlusion and stenosis of left carotid artery (principal) | CPT/HCPCS: 35301; 99024 ==

== ENCOUNTER 2024-12-29 06:18 | Inpatient (IN) | payer OTHER, SELFPAY ==
[2024-12-25 13:30] VITALS: BP 100/55; PULSE 82; RESP 17; O2SAT 97; BMI 30.4
[2024-12-26 07:38] LABS: Hematocrit 42.9 % (42.0-52.0); Hemoglobin 14.7 g/dl (14.0-18.0); Mean Corpuscular HGB Conc 34.3 g/dl (31.0-36.0); Mean Corpuscular Hemoglobin 30.6 pg (27.0-33.0); Mean Corpuscular Volume 89.2 fL (80.0-98.0); NRBC Abs Auto 0.000 X10*3/uL (0.0-0.012); NRBC Pct Auto 0.0 /100WBC (0.0-0.2); Platelet Count 242 X10*3/uL (160-400); Red Blood Count 4.81 X10*6/uL (4.60-5.80); White Blood Count 9.4 X10*3/uL (4.8-10.8)
[2024-12-26 07:42] LABS: INTERNATIONAL NORM RATIO 0.9 (0.9-1.1); Prothrombin Time 10.6 SEC (10.9-12.4)
[2024-12-26 07:44] LABS: Hemoglobin A1C 213.9492 umol/L; Total Hemoglobin (HGBA1C) 3770.7866 umol/L
[2024-12-26 07:45] LABS: Partial Thromboplastin Time 28.4 SEC (26.7-34.1)
[2024-12-26 08:06] LABS: Anion Gap 17 (12-20); Blood Urea Nitrogen 22 mg/dL (9-16); Calcium 9.8 mg/dL (8.4-10.2); Carbon Dioxide 21 mmol/L (22-29); Chloride 106 mmol/L (96-108); Creatinine Clr Calc Pharmacy 91.5; Estimated Glomerular Filt Rate > 60; Potassium 4.3 mmol/L (3.3-5.1); Sodium 140 mmol/L (135-145); Triglycerides 707 mg/dL (<150)
[2024-12-29] VITALS (22 sets, daily range): BP systolic 102–158; BP diastolic 53–83; PULSE 73–94; RESP 10–20; TEMP 36.3–37; O2SAT 89–98; BMI 29.7
[2024-12-29] MEDS: Lactated Ringers 1,000 ML 100 ML IVCONT ×3 (06:50→22:43)
[2024-12-29 06:57] LABS: Glucose, Whole Blood 341 mg/dL (60-115)
--- NOTE | 2024-12-29 07:21 | MHC.SHP ---
Pre-Procedural Eval Section A - 24 Hr Update-Section A only Date of Service: 12/29/24 Section B - Complete if H&P > 30 days Chief Complaint: Occlusion and stenosis of left carotid artery Present Medications: see Short Stay Collaborative assessment Medical History: Significant History Allergies: Allergies Allergy/AdvReac Type Severity Reaction Status Date / Time haloperidol (From Haldol) Allergy Rash Verified 12/29/24 06:36 Review of Systems Sugical H&P ROS: Negative: Constitution, Cardiovascular, Respiratory and Neurological Exam Surgical H&P Exam: Normal: HEENT, Normal: Heart, Normal: Lungs, Normal: Extremities and Normal: Neurological Plan Diagnosis/Plan: Unchanged I have reviewed the history and physical and performed a pertinent physical examination on my patient. No changes have occurred unless specified. Time Spent With Patient Time: Total time managing care of this patient today ____ minutes.
--- NOTE | 2024-12-29 07:35 | HO.ANESPROP2 ---
Documented by User: Santa Smith NP 12/26/24 08:23 HPI - Anesthesia Eval Consult details Narrative: 64yo M for Left Carotid Endarterectomy, 12/29/24 No recent illness No CP/SOB with staying active at day program... walking, playing pool Pt admitted 07/2024 with facial drooping/apashia In the ED pt's vitals stable and WNL. Labs were significant for creatinine 1.34, initial POC 394, triglycerides 2050, and HLD 26. No leukocytosis. Stable H&H. No significant electrolyte abnormalities. Troponin negative. CXR showed no acute pulmonary disease. CT?of head showed dense signed left MCA concerning for acute nonhemorrhagic stroke of left MCA territory. CTA of head and neck showed 70% stenosis of left ICA in less than 60% stenosis of right ICA secondary to calcified plaque. EKG demonstrated sinus rhythm with possible fusion complexes, but no evidence of significant ST elevations or depressions. Pt was treated with IVF, insulin 5 units IV, and aspirin. Hospital Course Patient admitted to telemetry where monitor failed to demonstrate any abnormal rhythms. Consultation was placed to Neurology who reviewed all imaging. 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 Neurology felt that given high sugars that a prednisone taper should be avoided. Initially discuss this with modifications to patient's regimen however given the degree of hyperglycemia patient can discuss this with his PCP he will need to make changes if prednisone is added. Seen by Physical therapy and deemed acceptable for home PT. No recent illness Denies CP/SOB with Triglycerides 2050 on 07/2024 - repeat 707 on 12/26/24 Facial drooping resolved ADINA: did not tolerate CPAP Smoker: coarse lungs, nonproductive cough. Encouraged cough and deep breathing throughout days preop, also albuterol 1 x daily preop DM: FBS ~ 220's Anesthesia Pre-Procedure Meds Is the patient on any of the following meds?: GLP1/DPP4 and SGLT2 Inhib PMFSH Active Problems Active Problems: All Active Problems Type 2 diabetes mellitus with unspecified complications (Acute) Bilateral carotid artery stenosis (Acute) Preoperative cardiovascular examination (Acute) Left carotid stenosis (Acute) Villa's palsy (Acute) Facial droop (Acute) Left knee pain (Acute) Hyperlipidemia (Acute) Hypertension (Acute) Past Medical History Medical History Arthritis Back pain Herniated lumbar intervertebral disc Anxiety Depression Memory impairment Bipolar 1 disorder Sleep apnea Acute ischemic left MCA stroke Diabetes Hyperlipidemia Hypertension Family History Family History Mother Stroke Surgical History Surgical History H/O colonoscopy S/P cardiac cath (~12/04/24) Social History Social History Household Members: None Housing: Apartment Are you a primary career based intervention coordinator to a significant other at home: No Do you presently have visiting nurse or other home services: Yes (metal window screen assembler and adult day program 3x week) Alcohol intake: former Patient Tobacco Use Status: Current everyday Tobacco user Tobacco use type: Cigarette Cigarette Packs Per Day: 1 Cigarettes Per Day: 10 Years Smoked: 50 Use of substances other than those prescribed or required for medical reasons: No Have you been hit, kicked, punched, or otherwise hurt by someone within the past year? If so, by whom?: No Are you DNR?: No Advance Directives: Yes Advance Directives Information Provided: No Advance Directives on File: Yes Advance Directives Date on File: 07/24/24 Poor oral hygiene: Yes service: No Meds Allergies Allergy/AdvReac Type Severity Reaction Status Date / Time haloperidol (From Haldol) Allergy Rash Verified 12/29/24 06:36 Home Medications ?Medication ?Instructions ?Recorded ?Confirmed ?Last Taken ?Type aspirin 81 mg tablet,delayed 81 mg PO DAILY 11/06/23 12/29/24 12/24/24 History release lisinopril 20 mg tablet 20 mg PO DAILY 11/06/23 12/29/24 07/24/24 History metformin 500 mg tablet,extended 1,000 mg PO BID 11/06/23 12/29/24 07/24/24 History release 24 hr aripiprazole 30 mg tablet 30 mg PO DAILY 07/24/24 12/29/24 07/24/24 History bupropion HCl 200 mg tablet,12 hr 200 mg PO DAILY 07/24/24 12/29/24 07/24/24 History sustained-release cholecalciferol (vitamin D3) 50 100 mcg PO DAILY 07/24/24 12/29/24 07/24/24 History mcg (2,000 unit) capsule (Vitamin D3) clonazepam 0.5 mg tablet 0.25 mg PO BID Anxiety 07/24/24 12/29/24 Unknown History diphenhydramine HCl 50 mg capsule 50 mg PO BEDTIME PRN Sleep 07/24/24 12/29/24 Unknown History (Banophen) empagliflozin 25 mg tablet 25 mg PO DAILY 07/24/24 12/29/24 12/24/24 History (Jardiance) icosapent ethyl 1 gram capsule 2 g PO BID 07/24/24 12/29/24 07/24/24 History (Vascepa) melatonin 3 mg tablet 6 mg PO BEDTIME PRN Insomnia 07/24/24 12/29/24 Unknown History omeprazole 20 mg capsule,delayed 20 mg PO DAILY@0630 07/24/24 12/29/24 07/24/24 History release tamsulosin 0.4 mg capsule 0.4 mg PO DAILY 07/24/24 12/29/24 07/24/24 History tirzepatide 10 mg/0.5 mL 10 mg subcut QWEEK 07/24/24 12/29/24 12/18/24 History subcutaneous pen injector (Mounjaro) albuterol sulfate 90 mcg/actuation 2 puff inhalation Q4H PRN wheezing 12/25/24 12/29/24 Unknown History aerosol inhaler insulin glargine 100 unit/mL (3 60 unit subcut QAM 12/25/24 12/29/24 Unknown History mL) subcutaneous pen (Lantus Solostar U-100 Insulin) Exam Height,Weight and Vital Signs: Height 5 ft 9 in Weight 93.44 kg Last Vital Signs Pulse 82 12/25/24 13:30 Resp 17 12/25/24 13:30 BP 100/55 L 12/25/24 13:30 Pulse Ox 97 12/25/24 13:30 O2 Del Method Room Air 12/25/24 13:30 Pertinent Lab Results Pertinent Lab Results: Lab Results 12/26/24 Range/Units 07:26 WBC 9.4 (4.8-10.8) X10*3/uL RBC 4.81 (4.60-5.80) X10*6/uL Hgb 14.7 (14.0-18.0) g/dl Hct 42.9 (42.0-52.0) % MCV 89.2 (80.0-98.0) fL MCH 30.6 (27.0-33.0) pg MCHC 34.3 (31.0-36.0) g/dl RDW 13.8 (11.0-16.0) % Plt Count 242 (160-400) X10*3/uL MPV 9.3 L (9.4-12.4) fL Absolute Nucleated RBC 0.000 (0.0-0.012) X10*3/uL Nucleated RBC % (auto) 0.0 (0.0-0.2) /100WBC PT 10.6 L (10.9-12.4) SEC INR 0.9 (0.9-1.1) APTT 28.4 (26.7-34.1) SEC Sodium 140 (135-145) mmol/L Potassium 4.3 (3.3-5.1) mmol/L Chloride 106 (96-108) mmol/L Carbon Dioxide 21 L (22-29) mmol/L Anion Gap 17 (12-20) BUN 22 H (9-16) mg/dL Creatinine 0.92 (0.5-1.4) mg/dL Estim Creat Clear Calc 91.5 Estimated GFR > 60 Fasting Glucose 201 H (60-99) mg/dL Estimat Average Glucose 163 mg/dL Hemoglobin A1c % 7.3 H (<6.0) % Calcium 9.8 D (8.4-10.2) mg/dL Triglycerides 707 H (<150) mg/dL Narrative Narrative: Cardiac cath 11/2024 Hemodynamics: Normal systemic pressures. High normal LVEDP. There is no significant gradient across aortic valve on pullback. Coronary anatomy: Right dominant circulation. No significant coronary artery disease noted. Diagnostic Recommendations Aggressive primary risk factor modification according to ATP III guidelines. Can proceed with carotid surgery. Not high risk. ECHO 11/2024 Conclusions: - Normal left ventricular size, thickness, systolic function, and wall motion. The visually estimated ejection fraction is between 60-65%. - Normal right ventricular cavity size and systolic function. - Interatrial shunt cannot be excluded by color Doppler. EKG 11/2024 Details: EKG with underlying sinus rhythm at 88/Min; downsloping T-waves in the inferior leads. Normal OR and corrected QT. CT angio head neck STROKE 07/2024 IMPRESSION: No main cerebral artery occlusion or embolus. 70% stenosis left ICA secondary to calcified plaque. Less than 60% stenosis right ICA secondary to calcified plaque. 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 Atherosclerosis disease, cavernous supracavernous segments both ICA. Airway Mallampati Class: III TM Dist: <=3cm Neck ROM: Full Denture: Upper and Lower Heart: RRR Lungs: coarse but clears with cough Assessment and Plan Assessment Anesthesia Assessment: Anesthesia Plan Discussed, Smoking Cess. Discussed and PAT Visit Documented by User: Sara Leo DO 12/29/24 07:37 HPI - Anesthesia Eval Anesthesia Pre-Procedure Meds Is the patient on any of the following meds?: GLP1/DPP4 and SGLT2 Inhib PMFSH Past Medical History Medical History Arthritis Back pain Herniated lumbar intervertebral disc Anxiety Depression Memory impairment Bipolar 1 disorder Sleep apnea Acute ischemic left MCA stroke Diabetes Hyperlipidemia Hypertension Family History Family History Mother Stroke Family history of problems with anesthesia: No Surgical History Surgical History H/O colonoscopy S/P cardiac cath (~12/04/24) History of Problems with Anesthesia: No Social History Social History Household Members: None Housing: Apartment Are you a primary career based intervention coordinator to a significant other at home: No Do you presently have visiting nurse or other home services: Yes (metal window screen assembler and adult day program 3x week) Alcohol intake: former Patient Tobacco Use Status: Current everyday Tobacco user Tobacco use type: Cigarette Cigarette Packs Per Day: 1 Cigarettes Per Day: 10 Years Smoked: 50 Use of substances other than those prescribed or required for medical reasons: No Have you been hit, kicked, punched, or otherwise hurt by someone within the past year? If so, by whom?: No Are you DNR?: No Advance Directives: Yes Advance Directives Information Provided: No Advance Directives on File: Yes Advance Directives Date on File: 07/24/24 Poor oral hygiene: Yes service: No Meds Allergies Allergy/AdvReac Type Severity Reaction Status Date / Time haloperidol (From Haldol) Allergy Rash Verified 12/29/24 06:36 Home Medications ?Medication ?Instructions ?Recorded ?Confirmed ?Last Taken ?Type aspirin 81 mg tablet,delayed 81 mg PO DAILY 11/06/23 12/29/24 12/24/24 History release lisinopril 20 mg tablet 20 mg PO DAILY 11/06/23 12/29/24 07/24/24 History metformin 500 mg tablet,extended 1,000 mg PO BID 11/06/23 12/29/24 07/24/24 History release 24 hr aripiprazole 30 mg tablet 30 mg PO DAILY 07/24/24 12/29/24 07/24/24 History bupropion HCl 200 mg tablet,12 hr 200 mg PO DAILY 07/24/24 12/29/24 07/24/24 History sustained-release cholecalciferol (vitamin D3) 50 100 mcg PO DAILY 07/24/24 12/29/24 07/24/24 History mcg (2,000 unit) capsule (Vitamin D3) clonazepam 0.5 mg tablet 0.25 mg PO BID Anxiety 07/24/24 12/29/24 Unknown History diphenhydramine HCl 50 mg capsule 50 mg PO BEDTIME PRN Sleep 07/24/24 12/29/24 Unknown History (Banophen) empagliflozin 25 mg tablet 25 mg PO DAILY 07/24/24 12/29/24 12/24/24 History (Jardiance) icosapent ethyl 1 gram capsule 2 g PO BID 07/24/24 12/29/24 07/24/24 History (Vascepa) melatonin 3 mg tablet 6 mg PO BEDTIME PRN Insomnia 07/24/24 12/29/24 Unknown History omeprazole 20 mg capsule,delayed 20 mg PO DAILY@0630 07/24/24 12/29/24 07/24/24 History release tamsulosin 0.4 mg capsule 0.4 mg PO DAILY 07/24/24 12/29/24 07/24/24 History tirzepatide 10 mg/0.5 mL 10 mg subcut QWEEK 07/24/24 12/29/24 12/18/24 History subcutaneous pen injector (Mounjaro) albuterol sulfate 90 mcg/actuation 2 puff inhalation Q4H PRN wheezing 12/25/24 12/29/24 Unknown History aerosol inhaler insulin glargine 100 unit/mL (3 60 unit subcut QAM 12/25/24 12/29/24 Unknown History mL) subcutaneous pen (Lantus Solostar U-100 Insulin) Exam Exam Date and Time: 12/29/24 0725 Airway Mallampati Class: III TM Dist: <=3cm Neck ROM: Full Denture: Upper and Lower Heart: S1S2 Lungs: coarse breath sounds bilaterally Assessment and Plan Assessment Anesthesia Assessment: Anesthesia Plan Discussed and Chart Reviewed Final Anesthetic Review Family History of Problems with Anesthesia: No History of Problems with Anesthesia: No NPO: Yes ASA Class: III Final Preanesthetic Review: No Changes in Pt Med Stat, Meds/Allgs Chart Reviewed, Consent Obtained/Reviewed and Anes Risks/Benef Reviewed Patient Risk: Intermediate Procedure Risk: High Anesthetic Plan Anesthetic Plan: GA and Agree w/ Assess. and Plan Disposition: Standard PACU
[2024-12-29 10:51] LABS: Glucose, Whole Blood 372 mg/dL (60-115)
--- NOTE | 2024-12-29 11:02 | P.OP_ITS ---
Operative Note Operative Note Date of Service: 12/29/24 Narrative: Operative note by [facility] Preoperative diagnosis:1. Left Carotid stenosis Postoperative diagnosis: Same Procedure: Left Carotid endarterectomy with patch angioplasty Surgeon:Jaime aCmejo M.D. Cushion Filler: Willem OSORIO Anesthesia: General Specimens: 1 Drains: 1 Estimated blood loss: 100 mL Indications: 64-year-old gentleman who is a diabetic was discovered to have high-grade left carotid stenosis on CT angiogram. He now presents for carotid endarterectomy. The patient has signed the informed consent after reviewing risks, complications, benefits, and alternatives previously discussed with the patient. The patient was given the opportunity to ask any additional questions or voice any concerns. All questions were answered to the patient's satisfaction. Procedure in detail: Patient was taken to the operating room and placed in a supine position and prepped and draped in sterile manner with ChloraPrep. Longitudinal incision was made along the anterior border of the left sternocleidomastoid carried down through the subcutaneous fat and fascia. Hemostasis was obtained with electrocautery. The platysma muscle was then divided. The carotid sheath was identified in open. The vagus nerve, Ancef cervicalis, and hypoglossal nerves were identified and avoided. The common internal and external carotids were then freed from the surrounding tissue. At this point, [] units of heparin was administered and allowed to circulate for 5 minutes time to take effect. The internal, common, external carotids were clamped in that order. Once this was accomplished, we proceeded with the procedure. The carotid bulb was opened with an 11 blade and extended with Diaz scissors through the very tight lesion into normal internal carotid artery. This was then extended down into the common carotid artery. We then placed a Preston shunt. Then the plaque was sharply excised proximally and an eversion endarterectomy was performed successfully at the external. The plaque tapered nicely on to the internal and no tacking sutures were necessary. Heparinized saline was injected and no evidence of flapping or other debris was noted. The remaining carotid was examined, which showed no debris or flaps present. At this point a XenoSure patch was brought on to the field. This was anastomosed to the artery using a 6 0 Prolene in a running fashion. Once approximately 4/5 of the patch was sewn in the shunt was then removed. Prior to the last stitch the internal carotid was back bled through this. Heparinized saline was instilled into the carotid. The last stitch was tied. Hemostasis was excellent. The internal carotid was gently occluded while while of the external and internal were open in that order. Finally the internal was then opened and flow was restored to the entire system. Hemostasis was achieved with interrupted 7-0 Prolene sutures. The wound was irrigated thoroughly. We then placed a 7 flat Tam-Lundberg drain. Deep layer was reapproximated using a 2-0 poly Sorb and finally the superficial layer with a 3-0 Polysorb. The skin was closed in a subcuticular manner. The patient awoke and neurologic status was checked and appeared to be intact. Sponge, needle and instrument counts were correct. The patient tolerated the procedure well. Returned to recovery with stable vitals. This note is constructed using voice recognition software. While every effort has been made to ensure accuracy, peripheral equipment operator errors may have been included. Thank you for allowing me to participate in the care of your patient. Yours sincerely, Jaime Camejo MD, FACS, R.P.V.I.
--- NOTE | 2024-12-29 11:29 | P.PNCC_ITS ---
Subjective Subjective Date of Service: 12/29/24 Critical Care Time (minutes): 60 Physical Exam 2 Vital Signs: Vital Signs: Last Vital Signs Temp 97.3 F 12/29/24 10:50 Pulse 78 12/29/24 11:05 Resp 12 12/29/24 11:05 BP 138/60 12/29/24 11:05 Pulse Ox 90 L 12/29/24 11:05 O2 Del Method Nasal Cannula wit h Capnography 12/29/24 11:05 O2 Flow Rate 2 12/29/24 11:05 BMI result Body Mass Index 29.7 Const: General: cooperative, healthy appearing, comfortable, no acute distress, well developed, alert, awake and Physically active O rientation/consciousness: patient oriented x3 HEENT: Head: Yes normal to inspection, Yes normocephalic and Yes atraumatic Eyes: General: appearance normal, both eyes and all related structures Neck: Other: L lateral neck bandage, clean, dry, intact; drain in place Neck: Yes trachea midline and Yes supple Chest: Chest palpation & inspection: normal inspection of the chest Resp: Other: no appreciable overt rales, rhonchi, wheezing Effort & Inspection: normal respiratory effort Cardio: Rate: regular rate Rhythm: regular rhythm GI: Inspection: Yes normal to inspection, No Abdominal wall edema and No distended Palpation (GI): Soft to palpation, not firm, nontender, no guarding and not rigid Skin: General skin exam: no rashes or lesions noted Neuro: General: patient oriented x3, tone normal, moves all extremities and no focal motor deficits Extrem: General: Yes normal to inspection, Yes full ROM, Yes capillary refill normal and Yes no clubbing, cyanosis or edema Psych: Appearance: grossly normal Objective Data Labs 12/26/24 07:26 12/26/24 07:26 Labs: Laboratory Results - last 24 hr 12/29/24 12/29/24 06:53 10:47 POC Glucose 341 H 372 H* Progress Note: A&P Assessment and plan (1) Left carotid stenosis: Status: Acute Plan Patient is a 64 Y M w/ hypertension, hyperlipidemia, diabetes mellitus, and prior tobacco use, w/ known bilateral carotid artery stenosis, presenting for elective L carotid endarterectomy N: no acute issues CV: bilateral carotid artery stenosis, s/p elective L carotid endarterectomy; hypertension R: no acute issues GI: advance diet per surgery : no acute issues H: no acute issues; avoid chemical DVT prophylaxis ID: no stigmata of infection E: to monitor hypo-/hyper-glycemia P: no acute issues Quality Stroke Does the patient have a stroke diagnosis?: No VTE Prior VTE?: No VTE Risk Level:: Medical - moderate - high VTE Device Contraindication: N/A - Device Ordered VTE Drug Contraindication: Treatment Not Tolerated
[2024-12-29 13:36] LABS: Glucose, Whole Blood 325 mg/dL (60-115)
--- NOTE | 2024-12-29 14:00 | PHA.MEDREC ---
Addendum entered by Vren Klein PharmD 12/29/24 14:16: reviewed Original Note: Pharmacy Consult ? Medication Reconciliation Pharmacy has Reviewed the medication reconciliation by nursing. patient was able to confirm his medications. Patient confirmed Lantus 60 units at bedtime, Lisinopril 10 mg daily, Metformin 500 mg daily, Mounjaro 15 mg every , last dose 12/18/24.
[2024-12-29] MEDS: Insulin Glargine,Hum.rec.anlog 100 UNIT/ML 10 ML VIAL 60 UNIT SUBCUT (14:31)
[2024-12-29 16:01] LABS: Glucose, Whole Blood 282 mg/dL (60-115)
[2024-12-29] MEDS: 0.9 % Sodium Chloride Flush 3 ML SYRINGE IVFLUSH ×2 (16:20→23:34)
[2024-12-29] MEDS: oxyCODONE HCl Immed Release 5 MG TABLET PO ×2 (16:26→22:46)
[2024-12-29 20:24] LABS: Glucose, Whole Blood 315 mg/dL (60-115)
[2024-12-29 20:31] LABS: MANUAL DIFF FLAG NO
[2024-12-29 20:32] LABS: Hematocrit 35.0 % (42.0-52.0); Hemoglobin 12.1 g/dl (14.0-18.0); Imm Gran Abs Auto 0.07 X10*3/uL (0.00-0.03); Imm Gran Pct Auto 0.6 % (0.0-0.4); Lymphocytes Absolute Auto 2.3 X10*3/uL (1.2-4.9); Mean Corpuscular HGB Conc 34.6 g/dl (31.0-36.0); Mean Corpuscular Hemoglobin 31.0 pg (27.0-33.0); Mean Corpuscular Volume 89.7 fL (80.0-98.0); NRBC Abs Auto 0.000 X10*3/uL (0.0-0.012); NRBC Pct Auto 0.0 /100WBC (0.0-0.2); Platelet Count 222 X10*3/uL (160-400); Red Blood Count 3.90 X10*6/uL (4.60-5.80); White Blood Count 11.5 X10*3/uL (4.8-10.8)
[2024-12-29 20:49] LABS: Anion Gap 15 (12-20); Blood Urea Nitrogen 19 mg/dL (9-16); Calcium 8.9 mg/dL (8.4-10.2); Carbon Dioxide 22 mmol/L (22-29); Chloride 105 mmol/L (96-108); Creatinine Clr Calc Pharmacy 62.6; Estimated Glomerular Filt Rate 54; Magnesium 1.7 mg/dL (1.6-2.6); Potassium 4.6 mmol/L (3.3-5.1); Sodium 137 mmol/L (135-145)
--- NOTE | 2024-12-29 21:15 | PC.NURSE ---
Patient admitted to ICU S/P left Carotid Endarectomy. Patient A/O x4, NSR on telemetry. LS clear/ 2L O2 NC. VSS. Patient is a diabetic/ diabetic diet, tolerating well. Abdomen soft /nontender/ +BS x4. Pain managed with Oxycodone/ Morphine with good effect. Delacruz catheter in place draining CYU. Dressing to left lateral neck/ red blood staining , LAMIN drain at surgical site. Draining sanguineous drainage. Neck edema noted.
[2024-12-30] VITALS (14 sets, daily range): BP systolic 90–124; BP diastolic 52–79; PULSE 71–89; RESP 12–18; TEMP 36.4–37; O2SAT 92–98; BMI 35.3
--- NOTE | 2024-12-30 01:24 | PC.NURSE ---
Addendum entered by Juan Henderson RN 12/30/24 04:41: BLOODY STAINING ON LEFT NECK DRESSING UNCHANGED OVERNIGHT...LEFT NECK LAMIN DRAIN EMPTIED 20ML BLOODY DRAINAGE..NEUROLOGIC STATUS UNCHANGED...MEDICATED WITH PRN OXYCODONE AND TYLENOL FOR C/O 6/10 LEFT NECK PAIN..DECLINED PRN MORPHINE..REPORTED RELIEF OF PAIN AT APPROX 04:30...SWALLOWED PILLS AND H20 W/O DIFFICULTY....DOZING W/O DIFFICULTY AFTER RE-ASSESSMENT Original Note: CARE ASSUMED 11PM...NAPPING INTERMITTANTLY..EASILY AROUSED..ALERT..ORIENTED X3..SPEECH CLEAR..ULLOA AND SELF-POSITIONS IN BED AD-ANTHONY..TONGUE MID-LINE...LEFT NECK DRESSING WITH SANGUINOUS DRAINAGE PRESENT FROM SURGERY PER SHIFT REPORT..DRAINAGE STAINING UNCHANGED OVERNIGHT...LEFT NECK LAMIN DRAIN WITH SMALL AMOUNT BLOODY DRAINAGE...LR 100 CC/HR...CINTRON YELLOW URINE..DENIED DISCOMFORT POST PREVIOUS RECEIPT OF PRN OXYCODONE FROM PREVIOUS RN..NSR..NO ECTOPY...DENIES SOB..SAO2 CYCLIC D/T SLEEP APNEA...DENIED USE OF CPAP MACHINE AT HOME BUT ADMITTED TO SLEEP APNEA ..DENIED/OFFERED NO COMPLAINTS
[2024-12-30] MEDS: oxyCODONE HCl Immed Release 5 MG TABLET PO ×2 (03:45→08:16)
[2024-12-30 05:41] LABS: MANUAL DIFF FLAG NO
[2024-12-30 05:42] LABS: Hematocrit 35.4 % (42.0-52.0); Hemoglobin 11.8 g/dl (14.0-18.0); Imm Gran Abs Auto 0.06 X10*3/uL (0.00-0.03); Imm Gran Pct Auto 0.6 % (0.0-0.4); Lymphocytes Absolute Auto 3.2 X10*3/uL (1.2-4.9); Mean Corpuscular HGB Conc 33.3 g/dl (31.0-36.0); Mean Corpuscular Hemoglobin 30.0 pg (27.0-33.0); Mean Corpuscular Volume 90.1 fL (80.0-98.0); NRBC Abs Auto 0.000 X10*3/uL (0.0-0.012); NRBC Pct Auto 0.0 /100WBC (0.0-0.2); Platelet Count 213 X10*3/uL (160-400); Red Blood Count 3.93 X10*6/uL (4.60-5.80); White Blood Count 10.5 X10*3/uL (4.8-10.8)
[2024-12-30 05:59] LABS: Anion Gap 14 (12-20); Blood Urea Nitrogen 18 mg/dL (9-16); Calcium 8.8 mg/dL (8.4-10.2); Carbon Dioxide 21 mmol/L (22-29); Chloride 107 mmol/L (96-108); Creatinine Clr Calc Pharmacy 110.4; Estimated Glomerular Filt Rate > 60; Potassium 4.3 mmol/L (3.3-5.1); Sodium 138 mmol/L (135-145)
[2024-12-30 06:00] LABS: Magnesium 1.6 mg/dL (1.6-2.6)
[2024-12-30 07:10] LABS: Glucose, Whole Blood 253 mg/dL (60-115)
[2024-12-30] MEDS: 0.9 % Sodium Chloride Flush 3 ML SYRINGE IVFLUSH (08:15)
--- NOTE | 2024-12-30 08:16 | P.PNCC_ITS ---
Subjective Subjective Date of Service: 12/30/24 Interval History: no significant overnight events Critical Care Time (minutes): 0 Physical Exam 2 Vital Signs: Vital Signs: Last Vital Signs Temp 98.1 F 12/30/24 08:00 Pulse 73 12/30/24 08:00 Resp 18 12/30/24 08:00 BP 118/52 L 12/30/24 08:00 Pulse Ox 96 12/30/24 08:00 O2 Del Method Room Air 12/30/24 08:00 O2 Flow Rate 2 12/30/24 04:00 BMI result Body Mass Index 35.3 Const: General: cooperative, healthy appearing, comfortable, no acute distress, well developed, alert, awake and Physically active O rientation/consciousness: patient oriented x3 HEENT: Other: appreciable L lateral neck bandage clean, intact; drain in place Head: Yes normocephalic and Yes atraumatic Eyes: General: appearance normal, both eyes and all related structures Neck: Neck: Yes trachea midline and Yes supple Chest: Chest palpation & inspection: normal inspection of the chest Resp: Effort & Inspection: normal respiratory effort GI: Inspection: Yes normal to inspection and No distended Skin: General skin exam: no rashes or lesions noted Neuro: General: patient oriented x3, tone normal, moves all extremities and no focal motor deficits Extrem: General: Yes normal to inspection Psych: Appearance: grossly normal Objective Data Labs 12/30/24 05:21 12/30/24 05:21 Labs: Laboratory Results - last 24 hr 12/29/24 12/29/24 12/29/24 10:47 13:32 15:58 WBC RBC Hgb Hct MCV MCH MCHC RDW Plt Count MPV Immature Gran % (Auto) Neut % (Auto) Lymph % (Auto) [place] % (Auto) Eos % (Auto) Baso % (Auto) Lymph # (Auto) [place] # (Auto) Eos # (Auto) Baso # (Auto) Abs Immat Gran (auto) Absolute Neuts (auto) Absolute Nucleated RBC Nucleated RBC % (auto) Sodium Potassium Chloride Carbon Dioxide Anion Gap BUN Creatinine Estim Creat Clear Calc Estimated GFR POC Glucose 372 H* 325 H 282 H Random Glucose Calcium Phosphorus Magnesium 12/29/24 12/29/24 12/30/24 20:01 20:20 05:21 WBC 11.5 H 10.5 RBC 3.90 L 3.93 L Hgb 12.1 L 11.8 L Hct 35.0 L 35.4 L MCV 89.7 90.1 MCH 31.0 30.0 MCHC 34.6 33.3 RDW 13.7 13.7 Plt Count 222 213 MPV 9.7 9.7 Immature Gran % (Auto) 0.6 H 0.6 H Neut % (Auto) 70.8 57.0 Lymph % (Auto) 19.9 L 30.7 [place] % (Auto) 8.0 9.8 Eos % (Auto) 0.4 1.7 Baso % (Auto) 0.3 0.2 Lymph # (Auto) 2.3 3.2 [place] # (Auto) 0.9 1.0 Eos # (Auto) 0.1 0.2 Baso # (Auto) 0.0 0.0 Abs Immat Gran (auto) 0.07 H 0.06 H Absolute Neuts (auto) 8.1 6.0 Absolute Nucleated RBC 0.000 0.000 Nucleated RBC % (auto) 0.0 0.0 Sodium 137 138 Potassium 4.6 4.3 Chloride 105 107 Carbon Dioxide 22 21 L Anion Gap 15 14 BUN 19 H 18 H Creatinine 1.33 0.82 Estim Creat Clear Calc 62.6 110.4 Estimated GFR 54 > 60 POC Glucose 315 H Random Glucose 328 H 279 H Calcium 8.9 D 8.8 Phosphorus 4.4 3.5 Magnesium 1.7 1.6 12/30/24 07:07 WBC RBC Hgb Hct MCV MCH MCHC RDW Plt Count MPV Immature Gran % (Auto) Neut % (Auto) Lymph % (Auto) [place] % (Auto) Eos % (Auto) Baso % (Auto) Lymph # (Auto) [place] # (Auto) Eos # (Auto) Baso # (Auto) Abs Immat Gran (auto) Absolute Neuts (auto) Absolute Nucleated RBC Nucleated RBC % (auto) Sodium Potassium Chloride Carbon Dioxide Anion Gap BUN Creatinine Estim Creat Clear Calc Estimated GFR POC Glucose 253 H Random Glucose Calcium Phosphorus Magnesium Progress Note: A&P Assessment and plan (1) Left carotid stenosis: Status: Acute Plan Patient is a 64 Y M w/ hypertension, hyperlipidemia, diabetes mellitus, and prior tobacco use, w/ known bilateral carotid artery stenosis, presenting for elective L carotid endarterectomy N: no acute issues CV: bilateral carotid artery stenosis, s/p elective L carotid endarterectomy; hypertension R: no acute issues GI: diabetic diet : no acute issues H: no acute issues; avoid chemical DVT prophylaxis ID: no stigmata of infection E: to monitor hypo-/hyper-glycemia P: no acute issues Quality Stroke Does the patient have a stroke diagnosis?: No VTE Prior VTE?: No VTE Risk Level:: Medical - moderate - high VTE Device Contraindication: N/A - Device Ordered VTE Drug Contraindication: Treatment Not Tolerated
[2024-12-30] MEDS: Aspirin Enteric Coated 81 MG TABLET.DR PO (08:17)
[2024-12-30] MEDS: ARIPiprazole 30 MG TABLET PO (08:17)
[2024-12-30] MEDS: Insulin Glargine,Hum.rec.anlog 100 UNIT/ML 10 ML VIAL 60 UNIT SUBCUT (08:22)
[2024-12-30] MEDS: Lactated Ringers 1,000 ML 100 ML IVCONT (08:27)
--- NOTE | 2024-12-30 09:44 | HO.POSTANES ---
Post Anesthesia Evaluation Post Anesthesia Evaluation Date of Service: 12/30/24 Vital Signs: Vital Signs Temp Pulse Resp BP Pulse Ox O2 Del Method O2 Flow Rate 12/30/24 09:00 83 12 121/55 L 98 Room Air 12/30/24 08:00 98.1 F 73 18 118/52 L 96 Room Air 12/30/24 07:00 75 15 116/71 92 Room Air 12/30/24 05:53 80 16 102/68 95 Room Air 12/30/24 05:00 82 16 114/60 95 Room Air 12/30/24 04:00 74 17 123/60 94 Nasal Cannula 2 12/30/24 03:57 98.6 F 12/30/24 03:00 76 16 116/66 96 Nasal Cannula 2 12/30/24 01:58 82 16 124/70 95 Nasal Cannula 2 12/30/24 00:52 89 17 120/79 96 Nasal Cannula 2 12/29/24 23:59 98.6 F 87 19 116/71 93 Nasal Cannula 2 12/29/24 23:00 90 19 117/62 95 Nasal Cannula 2 12/29/24 21:56 84 17 107/59 L 90 L Nasal Cannula 2 Anesthesia: General Mental Status: Awake Pain Control: Satisfactory Nausea/Vomiting: None Hydration: Adequate Anesthesia-Related Issues: No Anes. Related Issues
[2024-12-30 11:29] LABS: Glucose, Whole Blood 233 mg/dL (60-115)
--- NOTE | 2024-12-30 13:07 | MHC.CM.PN ---
Pt brought to ICU after carotid endartectomy: Pt from home w/[facility] for skilled RN visits. He also has [employer] services for 19.5 hours per week. It is expected pt will return to home with existing services. Family to assist w/transportation. CM to follow.
--- NOTE | 2024-12-30 13:09 | P.DS_ITS ---
DS: Providers Provider Date of Service: 12/30/24 Date of admission: 12/29/24 06:18 Date of discharge: 12/30/24 Primary care physician: Lou Oliveira MD DS: Diagnosis Discharge Diagnosis (1) Left carotid stenosis: Status: Acute DS: Summary Hospital Course Hospital Course: Patient underwent elective left carotid endarterectomy on 12/29/2024. Postoperatively appeared to be doing relatively well tolerating a regular diet and was observed overnight in the ICU. Postop day 1 neurologically intact tolerating regular diet voiding freely. Patient was subsequently discharged. Status at Discharge Functional status at discharge: independent ambulation Overall status at discharge: patient is back to baseline Time Attestation Discharge Coordination Time (in mins): 35 Quality: Safe Use of Opioids Does Pt have an Active Cancer Diagnosis on the Problem List?: No Quality: Stroke Does the patient have a stroke diagnosis?: No Physical Exam Vital Signs: Vital Signs: Last Vital Signs Temp 97.5 F 12/30/24 12:00 Pulse 78 12/30/24 12:00 Resp 18 12/30/24 12:00 BP 90/56 L 12/30/24 12:00 Pulse Ox 92 12/30/24 12:00 O2 Del Method Room Air 12/30/24 12:00 O2 Flow Rate 2 12/30/24 04:00 BMI result Body Mass Index 35.3 DS: Data Data Completed and Pending Pending studies at discharge: Pending at discharge 12/29/24 09:12 Surgical [PTH] Routine Labs on day of discharge: Laboratory Results - last 24 hr 12/29/24 12/29/24 12/29/24 13:32 15:58 20:01 WBC 11.5 H RBC 3.90 L Hgb 12.1 L Hct 35.0 L MCV 89.7 MCH 31.0 MCHC 34.6 RDW 13.7 Plt Count 222 MPV 9.7 Immature Gran % (Auto) 0.6 H Neut % (Auto) 70.8 Lymph % (Auto) 19.9 L [place] % (Auto) 8.0 Eos % (Auto) 0.4 Baso % (Auto) 0.3 Lymph # (Auto) 2.3 [place] # (Auto) 0.9 Eos # (Auto) 0.1 Baso # (Auto) 0.0 Abs Immat Gran (auto) 0.07 H Absolute Neuts (auto) 8.1 Absolute Nucleated RBC 0.000 Nucleated RBC % (auto) 0.0 Sodium 137 Potassium 4.6 Chloride 105 Carbon Dioxide 22 Anion Gap 15 BUN 19 H Creatinine 1.33 Estim Creat Clear Calc 62.6 Estimated GFR 54 POC Glucose 325 H 282 H Random Glucose 328 H Calcium 8.9 D Phosphorus 4.4 Magnesium 1.7 12/29/24 12/30/24 12/30/24 20:20 05:21 07:07 WBC 10.5 RBC 3.93 L Hgb 11.8 L Hct 35.4 L MCV 90.1 MCH 30.0 MCHC 33.3 RDW 13.7 Plt Count 213 MPV 9.7 Immature Gran % (Auto) 0.6 H Neut % (Auto) 57.0 Lymph % (Auto) 30.7 [place] % (Auto) 9.8 Eos % (Auto) 1.7 Baso % (Auto) 0.2 Lymph # (Auto) 3.2 [place] # (Auto) 1.0 Eos # (Auto) 0.2 Baso # (Auto) 0.0 Abs Immat Gran (auto) 0.06 H Absolute Neuts (auto) 6.0 Absolute Nucleated RBC 0.000 Nucleated RBC % (auto) 0.0 Sodium 138 Potassium 4.3 Chloride 107 Carbon Dioxide 21 L Anion Gap 14 BUN 18 H Creatinine 0.82 Estim Creat Clear Calc 110.4 Estimated GFR > 60 POC Glucose 315 H 253 H Random Glucose 279 H Calcium 8.8 Phosphorus 3.5 Magnesium 1.6 12/30/24 11:19 WBC RBC Hgb Hct MCV MCH MCHC RDW Plt Count MPV Immature Gran % (Auto) Neut % (Auto) Lymph % (Auto) [place] % (Auto) Eos % (Auto) Baso % (Auto) Lymph # (Auto) [place] # (Auto) Eos # (Auto) Baso # (Auto) Abs Immat Gran (auto) Absolute Neuts (auto) Absolute Nucleated RBC Nucleated RBC % (auto) Sodium Potassium Chloride Carbon Dioxide Anion Gap BUN Creatinine Estim Creat Clear Calc Estimated GFR POC Glucose 233 H Random Glucose Calcium Phosphorus Magnesium Discharge Plan Discharge Anticipated Discharge Date/Time: 12/30/24 13:06 Patient Disposition: Home, Self-Care Discharge Diagnosis: Status post left carotid endarterectomy Referrals: Lou Oliveira MD [Primary Care Provider, Medical] - 1 Week Discharge Medications: New oxycodone-acetaminophen [Endocet] 5-325 mg tablet 1 tab PO Q8H PRN (Reason: pain) Qty: 7 0RF Rx Instructions: Partial Fill upon patient request. Continued diphenhydramine HCl [Banophen] 50 mg capsule 50 mg PO BEDTIME PRN (Reason: Sleep) tamsulosin 0.4 mg capsule 0.4 mg PO DAILY omeprazole 20 mg capsule,delayed release(DR/EC) 20 mg PO DAILY@0630 cholecalciferol (vitamin D3) [Vitamin D3] 50 mcg (2,000 unit) capsule 100 mcg PO DAILY icosapent ethyl [Vascepa] 1 gram capsule 2 g PO BID Jardiance 25 mg tablet 25 mg PO DAILY clonazepam 0.5 mg Tablet 0.25 mg PO BID melatonin 3 mg Tablet 6 mg PO BEDTIME PRN (Reason: Insomnia) bupropion HCl 200 mg Tablet Sustained-Release 12 Hr 200 mg PO DAILY aripiprazole 30 mg Tablet 30 mg PO DAILY atorvastatin 80 mg Tablet 80 mg PO DAILY Qty: 30 0RF insulin glargine [Lantus Solostar U-100 Insulin] 100 unit/mL (3 mL) insulin pen 60 unit subcut QAM albuterol sulfate 90 mcg/actuation HFA aerosol inhaler 2 puff inhalation Q4H PRN (Reason: wheezing) lisinopril 10 mg tablet 10 mg PO DAILY metformin 500 mg tablet extended release 24 hr 500 mg PO DAILY Mounjaro 15 mg/0.5 mL pen injector 15 mg subcut TH aspirin 81 mg tablet,delayed release (DR/EC) 81 mg PO DAILY Discharge Orders: Discharge Order (Routine); Ordered 12/30/24 Ordered By: Jaime Camejo Diet: Advance to usual diet Activity on Discharge: As tolerated Stand Alone Forms: Patient Portal Discharge page Print Language: Kinyarwanda Activity Restrictions/Additional Instructions: Skin tape was used and you may shower as early as tomorrow. Take it easy today and you may ambulate around the house. Within 24 hours you can resume normal activity You may climb a flight of stairs as tolerated Do not lift anything heavier than a gallon of milk for [address] Camejo in follow-up in approximately 2 weeks time. You should already have an appointment if not please call my office at [phone] Please use Tylenol as needed for pain and if required Endocet If you notice excessive bleeding from the neck please immediately call my office or return to the emergency room. Care Plan Goals: Heal after carotid surgery Health Concerns: Left carotid stenosis Plan of Treatment: Surveillance follow-up after carotid endarterectomy Assessment: Status post left carotid endarterectomy
--- NOTE | 2024-12-30 13:57 | PC.NURSE ---
Assumed care at 0700. Upon initial assessment, pt A&Ox4 with 7/10 pain. Delacruz removed at approx 0830, pt DTV by 1430. Pt voided at 1030. Discharge teaching at approx 1330. Pt repositioned q2hr as tolerated. See MAR and assessments for further details. Fall & safety precautions in place.
== END 2024-12-30 15:00 | disposition home or self-care (01) | DRG 39 ==
LOC: HO.SSSA 11:08 → HO.ICU 11:14
PROVIDERS: Registered Nurse Community Health; Admitting Provider Surgery Vascular Surgery; PCP Internal Medicine; Visit Provider Surgery Vascular Surgery
PROC: 03CJ0ZZ Extirpation of Matter from Left Common Carotid Artery, Open Approach (ICD-10-PCS; CPT 35301; principal; 2024-12-29 07:30)
DX: I65.22 Occlusion and stenosis of left carotid artery (principal); E11.9 Type 2 diabetes mellitus without complications; E78.5 Hyperlipidemia, unspecified; I10 Essential (primary) hypertension; Z87.891 Personal history of nicotine dependence; Z79.4 Long term (current) use of insulin; Z79.82 Long term (current) use of aspirin; Z79.84 Long term (current) use of oral hypoglycemic drugs; Z79.85 Long-term (current) use of injectable non-insulin antidiabetic drugs; Z79.899 Other long term (current) drug therapy
CPT/HCPCS: 36415; 80048; 82947; 83036; 83735; 84100; 84478; 85025; 85027; 85610; 85730; 86850; 86900; 86901; 88304; 88311; A4649; C1768; J0131; J0690; J1100; J1171; J1644; J1920; J2003; J2250; J2270; J2305; J2405; J2704; J2795; J3010; J7120

== ENCOUNTER → 2024-12-29 06:18 | Outpatient (BNV) | payer OTHER, SELFPAY | PROVIDERS: Admitting Provider Surgery Vascular Surgery; PCP Internal Medicine; Visit Provider Internal Medicine Critical Care Medicine | DX: I65.22 Occlusion and stenosis of left carotid artery (principal) | CPT/HCPCS: 99291 ==

== ENCOUNTER 2025-01-13 09:50 | Outpatient (AMB) | payer OTHER, SELFPAY ==
--- NOTE | 2025-01-13 10:08 | MHC.OFFVIS ---
Vital Signs 01/13/25 10:09 Height 5 ft 9 in Weight 200 lb BMI 29.5 Intake Visit Reasons: 2 week follow up s/p L CEA 12/29/24 Intake Note: 2 week follow up Left CEA 12/29/24. Still has numbness over treated area, eating and drinking okay [employer] Required: No Accompanied by: Self / Same As Patient Allergies haloperidol (From Haldol) Allergy (Verified 01/13/25 10:10) Rash HPI HPI 2 week follow up s/p L CEA 12/29/24: Details: The patient is a 64-year-old male presenting for postoperative follow-up after left carotid endarterectomy. The surgery was performed on 12/29/2024, and the patient reports no postoperative complications. He mentions experiencing a cough but denies any other issues with eating or general health. The incision site shows mild bruising, which is expected to resolve over time. A follow-up carotid ultrasound is planned in three months to assess the surgical outcome. [facility] Medical History Arthritis Back pain Herniated lumbar intervertebral disc Anxiety Depression Memory impairment Bipolar 1 disorder Sleep apnea Acute ischemic left MCA stroke Diabetes Hyperlipidemia Hypertension Surgical History H/O colonoscopy S/P cardiac cath (~12/04/24) Family History Mother Stroke Social History Household Members: Other Housing: House Are you a primary manager of care to a significant other at home: No Do you presently have visiting nurse or other home services: Yes (production reproduction manager and adult day program 3x week) Alcohol intake: former Patient Tobacco Use Status: Current everyday Tobacco user Tobacco use type: Cigarette Cigarette Packs Per Day: 1 Cigarettes Per Day: 10 Years Smoked: 50 Advance Directives Date on File: 07/24/24 service: No Review of Systems Const All systems reviewed & are unremarkable except as noted in HPI and below Reports no additional complaints ENT Reports Normal hearing present Card Denies chest pain, Denies chest pain at rest, Denies chest pain with activity and Denies pedal edema Resp Denies cough GI Denies abdominal pain Musc Denies abnormal gait, Denies muscle cramps and Denies radiating pain into limb Skin/Breast Denies skin ulcer and Denies wounds Neuro Reports Normal hearing present and Denies abnormal gait Psych Reports no additional complaints Physical Exam Vital Signs: BMI result Body Mass Index 29.5 Const General: cooperative, healthy appearing and comfortable Orientation/consciousness: oriented to person, oriented to place and oriented to time HEENT Head: Yes normal to inspection Neck Neck: Yes normal visual inspection Carotids: no bruits Chest Chest palpation & inspection: normal inspection of the chest Resp Effort & Inspection: normal respiratory effort and able to speak in complete sentences Auscultation: clear to auscultation bilaterally, no crackles, no rales, no rhonchi and no wheezes Cardio Rate: regular rate Rhythm: regular rhythm Heart sounds: S1 normal heart sound present and S2 normal heart sound present Bruits: no carotid bruits Peripheral pulses: Peripheral pulses 2+ throughout GI Inspection: Yes normal to inspection Skin Wounds: no wounds Hair: normal Neuro General: oriented to person, oriented to place and oriented to time Cranial nerves: Yes CN's II-XII intact bilaterally and Yes Normal hearing present Cognition (Neuro): normal cognition Motor exam (neuro): 5/5 motor strength present throughout Extrem Other: venous exam: No significant superficial varicosities or spider telangiectasias, minimal edema General: No clubbing, No cyanosis and No edema Psych Appearance: grossly normal Mental Status: mental status grossly normal Speech and movement: Normal speech and movement present Assessment & Plan Assessment & Plan (1) Bilateral carotid artery stenosis: Comment: 12/29/2024 - left carotid endarterectomy Code(s): I65.23 - Occlusion and stenosis of bilateral carotid arteries Category: Medical Plan: In short patient has done well with left carotid surgery. He will require three-month carotid surveillance. Thank you for allowing us to assist in his care. If there are any questions or concerns please do not hesitate to contact us Plan Patient was informed and verbally consented to the use of an ambient scribe for clinic note documentation during this visit. Patient Instructions: - Schedule a carotid ultrasound in three months. - Monitor the incision site for any signs of infection or unusual changes. Coding Level of Care Code Global (06373) Diagnoses Bilateral carotid artery stenosis I65.23
[2025-01-13 10:09] VITALS: BMI 29.5
== END 2025-01-13 10:37 | disposition home or self-care (01) ==
LOC: HO.HVS 09:51
PROVIDERS: PCP Internal Medicine; Visit Provider Surgery Vascular Surgery
DX: I65.23 Occlusion and stenosis of bilateral carotid arteries (principal)
CPT/HCPCS: 99024

== ENCOUNTER → 2025-01-13 09:50 | Outpatient (BNVA) | payer OTHER, SELFPAY | PROVIDERS: PCP Internal Medicine; Visit Provider Surgery Vascular Surgery | DX: I65.23 Occlusion and stenosis of bilateral carotid arteries (principal) | CPT/HCPCS: 99212 ==